=== PATIENT | male | born 1950 | race Caucasian/White ===

== ENCOUNTER 2016-10-07 17:35 | Emergency (ER) | payer OTHER, MEDICARE ==
[2016-10-07] MEDS ORDERED: ASPIRIN 81 MG TABLET, CHEWABLE PO ONE (18:16)
--- NOTE | 2016-10-07 18:18 | ER Document Report ---
ED Medical Screen (RME) - General Stated Complaint: CHEST PAIN Mode of Arrival: Wheelchair Information source: Patient Notes: Patient presents to the emergency department with complaints of chest pain for the past 3 days. Patient has long history of cardiac disease . Also reports his neck and shoulders and arms hurt really bad. He reports he vomited a couple times. Patient reports he has nitro but did not take it. Last cardiac surgery was in 1994. EKG sinus rhythm bundle-branch block no change from 2014. pt reports active chest pain radiating to his back now. I have greeted and performed a rapid initial assessment of this patient. A comprehensive ED assessment and evaluation of the patient, analysis of test results and completion of the medical decision making process will be conducted by additional ED providers. TRAVEL OUTSIDE OF THE [place] IN LAST 30 DAYS: No - Related Data Allergies/Adverse Reactions: No Known Allergies Allergy (Verified 10/07/16 18:14) Past Medical History - Past Medical History Cardiac Medical History: Reports: Hx Congestive Heart Failure, Hx Coronary Artery Disease, Hx Heart Attack - x 7, Hx Hypercholesterolemia, Hx Hypertension Pulmonary Medical History: Reports: Hx Asthma, Hx COPD Endocrine Medical History: Reports: Hx Diabetes Mellitus Type 2 GI Medical History: Reports: Hx Hiatal Hernia, Hx Ulcer Psychiatric Medical History: Reports: Hx Depression Past Surgical History: Reports: Hx Appendectomy, Hx Cardiac Catheterization - 3- 4 stents, Hx Cardiac Surgery - trip bypass - Immunizations Hx Diphtheria, Pertussis, Tetanus Vaccination: Yes Physical Exam - Vital signs Vitals: Temp Pulse Resp BP Pulse Ox 97.5 F 64 18 159/83 H 97 10/07/16 17:53 10/07/16 17:53 10/07/16 17:53 10/07/16 17:53 10/07/16 17:53 Course - Vital Signs Vital signs: Temp Pulse Resp BP Pulse Ox 97.5 F 64 18 159/83 H 97 10/07/16 17:53 10/07/16 17:53 10/07/16 17:53 10/07/16 17:53 10/07/16 17:53
[2016-10-07 18:54] LABS: ABSOLUTE BASOPHILS # (AUTO) 0.1 10^3/uL (0.0-0.2); ABSOLUTE EOSINOPHILS # (AUTO) 0.4 10^3/uL (0.0-0.6); ABSOLUTE LYMPHOCYTES (AUTO) 2.5 10^3/uL (0.5-4.7); ABSOLUTE MONOCYTES (AUTO) 0.7 10^3/uL (0.1-1.4); ABSOLUTE NEUT (AUTO) 5.2 10^3/uL (1.7-8.2); BASOPHILS % (AUTO) 1.2 % (0-2); EOSINOPHILS % (AUTO) 4.5 % (0-6); HEMATOCRIT 47.6 % (37.9-51.0); HEMOGLOBIN 15.4 g/dL (13.5-17.0); HGB HCT DIFFERENCE -1.4; MEAN CORPUSCULAR HEMOGLOBIN 27.6 pg (27.0-33.4); MEAN CORPUSCULAR HGB CONC 32.5 g/dL (32.0-36.0); MEAN CORPUSCULAR VOLUME 85 fl (80-97); MONOCYTES % (AUTO) 7.4 % (3-13); RED CELL DISTRIBUTION WIDTH 14.3 % (11.5-14.0); SEGMENTED NEUTROPHILS % (AUTO) 58.9 % (42-78); WHITE BLOOD COUNT 8.9 10^3/uL (4.0-10.5)
[2016-10-07] MEDS ORDERED: ONDANSETRON HCL INJ/PF 4 MG/2 ML SDV IV ONE (19:10)
[2016-10-07] MEDS ORDERED: NORMAL SALINE 1000 ML 1,000 ML IV PRN (19:10)
[2016-10-07 19:14] LABS: ALANINE AMINOTRANSFERASE 40 U/L (21-72); ALBUMIN 4.4 g/dL (3.5-5.0); ALKALINE PHOSPHATASE 87 U/L (38-126); ANION GAP 13 (5-19); ASPARTATE AMINO TRANSFERASE 25 U/L (17-59); BILIRUBIN,TOTAL 0.8 mg/dL (0.2-1.3); BLOOD UREA NITROGEN 13 mg/dL (7-20); CALCIUM 9.8 mg/dL (8.4-10.2); CARBON DIOXIDE 25 mmol/L (22-30); CHLORIDE 101 mmol/L (98-107); CREATINE KINASE 89 U/L (55-170); CREATININE RESULT 0.94 mg/dL (0.52-1.25); GLUCOSE 174 mg/dL (75-110); LIPASE 51.8 U/L (23-300); POTASSIUM 4.4 mmol/L (3.6-5.0); SODIUM 139.4 mmol/L (137-145); TOTAL PROTEIN 7.6 g/dL (6.3-8.2)
[2016-10-07 19:15] LABS: APPEARANCE,URINE CLEAR; BILIRUBIN,URINE NEGATIVE (NEGATIVE); GLUCOSE, URINE 50 mg/dL (NEGATIVE); KETONES,URINE 20 mg/dL (NEGATIVE); LEUKOCYTE ESTERASE,URINE NEGATIVE (NEGATIVE); NITRITE,URINE NEGATIVE (NEGATIVE); PROTEIN,URINE 100 mg/dL (NEGATIVE); URINE SPECIFIC GRAVITY 1.016; UROBILINOGEN,URINE NEGATIVE mg/dL (<2.0)
--- NOTE | 2016-10-07 19:19 | ER Document Report ---
ED General - General Chief Complaint: Chest Pain Stated Complaint: CHEST PAIN Time seen by provider: 19:16 Mode of Arrival: Wheelchair TRAVEL OUTSIDE OF THE [place] IN LAST 30 DAYS: No - HPI Patient complains to provider of: flulike symptoms Onset: Other - 3 days Onset/Duration: Persistent Quality of pain: Achy Severity: Mild Pain Level: 2 Associated symptoms: Body/muscle aches, Chest pain, Chills, Productive cough, Diarrhea, Headache, Nausea, Vomiting, Sinus pain/drainage, Shortness of breath, Sore throat, Weakness Exacerbated by: Denies Relieved by: Denies Similar symptoms previously: No Recently seen / treated by doctor: No Notes: 66-year-old male with multiple significant past medical problems presents to the emergency room for flulike symptoms 3 days, he reports sore throat, lightheadedness, no appetite, headache, joint pain, neck pain, chest pain, arm pain, subjective fever, cough productive of a small amount of clear phlegm, 2 episodes of vomiting yesterday, diarrhea, no blood in vomit or stool, dysuria, he also complains that he has been somewhat incontinent of urine and stools for the past 6 months stating that if he does not have a rash to the bathroom quickly he often doesn't make it - Related Data Allergies/Adverse Reactions: No Known Allergies Allergy (Verified 10/07/16 18:14) Past Medical History - General Information source: Patient - Social History Smoking Status: Former Smoker Chew tobacco use (# tins/day): No Frequency of alcohol use: None Drug Abuse: None Family History: Reviewed & Not Pertinent Patient has suicidal ideation: No Patient has homicidal ideation: No - Past Medical History Cardiac Medical History: Reports: Hx Congestive Heart Failure, Hx Coronary Artery Disease, Hx Heart Attack - x 7, Hx Hypercholesterolemia, Hx Hypertension Pulmonary Medical History: Reports: Hx Asthma, Hx COPD Endocrine Medical History: Reports: Hx Diabetes Mellitus Type 2 Renal/ Medical History: Denies: Hx Peritoneal Dialysis GI Medical History: Reports: Hx Hiatal Hernia, Hx Ulcer Psychiatric Medical History: Reports: Hx Depression Past Surgical History: Reports: Hx Appendectomy, Hx Cardiac Catheterization - 3- 4 stents, Hx Cardiac Surgery - trip bypass - Immunizations Hx Diphtheria, Pertussis, Tetanus Vaccination: Yes Hx Pneumococcal Vaccination: 08/12/12 Review of Systems - Review of Systems Constitutional: See HPI EENT: See HPI Cardiovascular: See HPI Respiratory: See HPI Gastrointestinal: See HPI Genitourinary: See HPI Male Genitourinary: No symptoms reported Musculoskeletal: See HPI Skin: No symptoms reported Hematologic/Lymphatic: No symptoms reported Neurological/Psychological: See HPI -: Yes All other systems reviewed and negative Physical Exam - Vital signs Vitals: Temp Pulse Resp BP Pulse Ox 97.5 F 64 18 159/83 H 97 10/07/16 17:53 10/07/16 17:53 10/07/16 17:53 10/07/16 17:53 10/07/16 17:53 Interpretation: Normal - General General appearance: Appears well, Alert - HEENT Head: Normocephalic, Atraumatic Eyes: Normal Conjunctiva: Normal Extraocular movements intact: Yes Eyelashes: Normal Pupils: PERRL Ears: Normal External canal: Normal Tympanic membrane: Normal Sinus: Normal Nasal: Normal Mouth/Lips: Normal Mucous membranes: Normal Pharynx: Normal Neck: Normal - Respiratory Respiratory status: No respiratory distress Chest status: Nontender Breath sounds: Normal Chest palpation: Normal - Cardiovascular Rhythm: Regular Heart sounds: Normal auscultation Murmur: No - Abdominal Inspection: Normal Distension: No distension Bowel sounds: Normal Tenderness: Tender - Epigastric Organomegaly: No organomegaly - Back Back: Normal, Nontender - Extremities General upper extremity: Normal inspection, Nontender, Normal color, Normal ROM , Normal temperature General lower extremity: Normal inspection, Nontender, Normal color, Normal ROM , Normal temperature, Normal weight bearing. No: Maribell's sign - Neurological Neuro grossly intact: Yes Cognition: Normal Orientation: AAOx4 Mayra Coma Scale Eye Opening: Spontaneous Mayra Coma Scale Verbal: Oriented [place] Coma Scale Motor: Obeys Commands [place] Coma Scale Total: 15 Speech: Normal Motor strength normal: LUE, RUE, LLE, RLE Sensory: Normal - Psychological Associated symptoms: Normal affect, Normal mood - Skin Skin Temperature: Warm Skin Moisture: Dry Skin Color: Normal Course - Re-evaluation Re-evalutation: 10/07/16 21:27 Patient resting comfortably, reports feeling much better after Zofran and IV fluids, symptoms consistent with likely viral illness, he will be discharged with a Zofran dose pack and information for follow-up, advised to return if symptoms worsen, patient and spouse at bedside acknowledge understanding and agreement with this plan - Vital Signs Vital signs: Temp Pulse Resp BP Pulse Ox 97.5 F 64 14 153/65 H 96 10/07/16 17:53 10/07/16 17:53 10/07/16 20:01 10/07/16 20:01 10/07/16 20:01 - Laboratory Result Diagrams: 10/07/16 18:40 10/07/16 18:40 Laboratory results interpreted by me: 10/07/16 10/07/16 10/07/16 18:40 18:40 18:57 RBC 5.60 H RDW 14.3 H Plt Count 147 L Glucose 174 H Urine Protein 100 H Urine Glucose (UA) 50 H Urine Ketones 20 H - Diagnostic Test Radiology reviewed: Image reviewed, Reports reviewed - EKG Interpretation by Me EKG shows normal: Sinus rhythm Rate: Normal Rhythm: NSR [place]/QRS: RBBB - Incomplete When compared to previous EKG there are: No significant change Discharge - Discharge Clinical Impression: Viral illness Condition: Stable Disposition: HOME, SELF-CARE Instructions: Chest Wall Pain ([facility]), Viral Syndrome ([facility]) Additional Instructions: Follow up with your primary care provider in one to 2 days. Return to the emergency room immediately if symptoms worsen or any additional concerns.
--- NOTE | 2016-10-07 19:24 | EKG REPORT ---
SEVERITY:- ABNORMAL ECG - SINUS RHYTHM INCOMPLETE RIGHT BUNDLE BRANCH BLOCK : Confirmed by: Ashley Sifuentes MD 07-Oct-2016 19:23:11
[2016-10-07 19:26] LABS: CREATINE KINASE MB 0.52 ng/mL (<4.55)
[2016-10-07 19:27] LABS: TROPONIN I < 0.012 ng/mL
[2016-10-07] MEDS ORDERED: ONDANSETRON ODT 4 MG TAB (6 TAB/DSPK) PO PRN (21:29)
[2016-10-07 21:53] VITALS: BP 163/85
== END 2016-10-07 21:53 | disposition home or self-care (01) ==
LOC: ER 17:35
DX: B34.9 Viral infection, unspecified (principal); R07.9 Chest pain, unspecified; M79.1 Myalgia; R05 Cough; R68.83 Chills (without fever); R19.7 Diarrhea, unspecified; R51 Headache; R11.2 Nausea with vomiting, unspecified; J34.89 Other specified disorders of nose and nasal sinuses; R06.02 Shortness of breath; R53.1 Weakness; J02.9 Acute pharyngitis, unspecified; R42 Dizziness and giddiness; R63.0 Anorexia; R10.816 Epigastric abdominal tenderness; M25.50 Pain in unspecified joint; M54.2 Cervicalgia; R32 Unspecified urinary incontinence; I45.10 Unspecified right bundle-branch block; I25.10 Atherosclerotic heart disease of native coronary artery without angina pectoris; I25.2 Old myocardial infarction; I10 Essential (primary) hypertension; J44.9 Chronic obstructive pulmonary disease, unspecified; J45.909 Unspecified asthma, uncomplicated; E11.9 Type 2 diabetes mellitus without complications; Z90.49 Acquired absence of other specified parts of digestive tract; Z98.61 Coronary angioplasty status; Z95.1 Presence of aortocoronary bypass graft; Z87.891 Personal history of nicotine dependence
CPT/HCPCS: 93005; 99285; 96361; 96374; 36415; 82553; 82550; 83690; 85025; 80053; 81001; 84484; 87804; 71020; 93010; J2405; J7030

== ENCOUNTER 2016-10-16 11:54 | Emergency (ER) | payer OTHER, MEDICARE ==
--- NOTE | 2016-10-16 12:16 | ER Document Report ---
ED Medical Screen (RME) - General Stated Complaint: CHEST PAIN Time seen by provider: 12:12 Mode of Arrival: Wheelchair Information source: Patient TRAVEL OUTSIDE OF THE [place] IN LAST 30 DAYS: No - HPI Patient complains to provider of: CHEST PAIN Onset: This morning Onset/Duration: Sudden Context: PRESSURE RELIEVED BY 2 NITRO Quality of pain: Pressure Severity: Moderate Pain Level: 4 Associated Symptoms: Chest pain, Hurts to breath, Nausea, Shortness of breath. denies: Vomiting Exacerbated by: Denies Relieved by: Denies Similar symptoms previously: Yes - HX 7 IN AND TRIPLE BYPASS Recently seen / treated by doctor: No Notes: 10/16/16 12:15 TAKES ASPIRIN DAILY, NOT SURE OF DOSE, SO NO ASPIRIN GIVEN IN RME UNTIL CAN VERIFY DOSE - Related Data Smoking: Non-smoker Frequency of alcohol use: None Drug Abuse: None Pertinent History: IN/BYPASS DM 1 HTN Allergies/Adverse Reactions: No Known Allergies Allergy (Verified 10/16/16 12:15) Past Medical History - Past Medical History Cardiac Medical History: Reports: Hx Congestive Heart Failure, Hx Coronary Artery Disease, Hx Heart Attack - x 7, Hx Hypercholesterolemia, Hx Hypertension Pulmonary Medical History: Reports: Hx Asthma, Hx COPD Endocrine Medical History: Reports: Hx Diabetes Mellitus Type 2 Renal/ Medical History: Denies: Hx Peritoneal Dialysis GI Medical History: Reports: Hx Hiatal Hernia, Hx Ulcer Psychiatric Medical History: Reports: Hx Depression Past Surgical History: Reports: Hx Appendectomy, Hx Cardiac Catheterization - 3- 4 stents, Hx Cardiac Surgery - trip bypass - Immunizations Hx Diphtheria, Pertussis, Tetanus Vaccination: Yes
[2016-10-16 13:07] LABS: ABSOLUTE BASOPHILS # (AUTO) 0.1 10^3/uL (0.0-0.2); ABSOLUTE EOSINOPHILS # (AUTO) 0.4 10^3/uL (0.0-0.6); ABSOLUTE LYMPHOCYTES (AUTO) 2.1 10^3/uL (0.5-4.7); ABSOLUTE MONOCYTES (AUTO) 0.6 10^3/uL (0.1-1.4); ABSOLUTE NEUT (AUTO) 3.3 10^3/uL (1.7-8.2); BASOPHILS % (AUTO) 1.3 % (0-2); EOSINOPHILS % (AUTO) 5.7 % (0-6); HEMATOCRIT 41.5 % (37.9-51.0); HEMOGLOBIN 13.9 g/dL (13.5-17.0); HGB HCT DIFFERENCE 0.2; LYMPHOCYTES % (AUTO) 32.7 % (13-45); MEAN CORPUSCULAR HEMOGLOBIN 27.9 pg (27.0-33.4); MEAN CORPUSCULAR HGB CONC 33.6 g/dL (32.0-36.0); MEAN CORPUSCULAR VOLUME 83 fl (80-97); MONOCYTES % (AUTO) 9.6 % (3-13); RED CELL DISTRIBUTION WIDTH 14.3 % (11.5-14.0); SEGMENTED NEUTROPHILS % (AUTO) 50.7 % (42-78); WHITE BLOOD COUNT 6.5 10^3/uL (4.0-10.5)
[2016-10-16 13:14] LABS: PROTHROMBIN TIME 12.6 SEC (11.4-15.4)
--- NOTE | 2016-10-16 13:47 | ER Document Report ---
ED General - General Chief Complaint: Chest Pain Stated Complaint: CHEST PAIN Mode of Arrival: Wheelchair Information source: Patient Notes: 66-year-old male extensive cardiac history including triple bypass 3 stents 7 MIs presents with complaints of chest pain. Patient notes it is a pressure sensation in the middle of his chest pain down his left arm up his left neck. Patient took 2 nitroglycerin at home which resulted chest pain. Patient denies any fevers or chills admits shortness of breath. He was seen here one week prior at which time patient was discharged. Denies any other concerns at this time TRAVEL OUTSIDE OF THE [place] IN LAST 30 DAYS: No - HPI Onset: This morning Onset/Duration: Intermittent Quality of pain: Pressure Severity: Mild Pain Level: 2 Associated symptoms: Chest pain Exacerbated by: Denies Relieved by: Other - Nitroglycerin Similar symptoms previously: Yes Recently seen / treated by doctor: Yes - Related Data Allergies/Adverse Reactions: No Known Allergies Allergy (Verified 10/16/16 12:15) Past Medical History - General Information source: Patient - Social History Smoking Status: Unknown if Ever Smoked Cigarette use (# per day): No Chew tobacco use (# tins/day): No Smoking Education Provided: No Frequency of alcohol use: None Drug Abuse: None Family History: Reviewed & Not Pertinent Patient has suicidal ideation: No Patient has homicidal ideation: No - Past Medical History Cardiac Medical History: Reports: Hx Congestive Heart Failure, Hx Coronary Artery Disease, Hx Heart Attack - x 7, Hx Hypercholesterolemia, Hx Hypertension Pulmonary Medical History: Reports: Hx Asthma, Hx COPD Endocrine Medical History: Reports: Hx Diabetes Mellitus Type 2 Renal/ Medical History: Denies: Hx Peritoneal Dialysis GI Medical History: Reports: Hx Hiatal Hernia, Hx Ulcer Psychiatric Medical History: Reports: Hx Depression Past Surgical History: Reports: Hx Appendectomy, Hx Cardiac Catheterization - 3- 4 stents, Hx Cardiac Surgery - trip bypass - Immunizations Hx Diphtheria, Pertussis, Tetanus Vaccination: Yes Hx Pneumococcal Vaccination: 08/12/12 Review of Systems - Review of Systems Notes: REVIEW OF SYSTEMS: CONSTITUTIONAL : Denies fever, chills, or sweats. Denies recent illness. EENT: Denies eye, ear, throat, or mouth pain or symptoms. Denies nasal or sinus congestion or discharge. Denies throat, tongue, or mouth swelling or difficulty swallowing. CARDIOVASCULAR: Admits to chest pain RESPIRATORY: Denies cough, cold, or chest congestion. Denies shortness of breath, difficulty breathing, or wheezing. GASTROINTESTINAL: Denies abdominal pain or distention. Denies nausea, vomiting , or diarrhea. Denies blood in vomitus, stools, or per rectum. Denies black, tarry stools. Denies constipation. GENITOURINARY: Denies difficulty urinating, painful urination, burning, frequency, blood in urine, or discharge. MUSCULOSKELETAL: Denies back or neck pain or stiffness. Denies joint pain or swelling. SKIN: Denies rash, lesions or sores. HEMATOLOGIC : Denies easy bruising or bleeding. LYMPHATIC: Denies swollen, enlarged glands. NEUROLOGICAL: Denies confusion or altered mental status. Denies passing out or loss of consciousness. Denies dizziness or lightheadedness. Denies headache. Denies weakness or paralysis or loss of use of either side. Denies problems with gait or speech. Denies sensory loss, numbness, or tingling. Denies seizures. PSYCHIATRIC: Denies anxiety or stress. Denies depression, suicidal ideation, or homicidal ideation. ALL OTHER SYSTEMS REVIEWED AND NEGATIVE. Dictation was performed using Sina voice recognition software PHYSICAL EXAMINATION: GENERAL: Well-appearing, well-nourished and in no acute distress. HEAD: Atraumatic, normocephalic. EYES: Pupils equal round and reactive to light, extraocular movements intact, sclera anicteric, conjunctiva are normal. ENT: Nares patent, oropharynx clear without exudates. Moist mucous membranes. NECK: Normal range of motion, supple without lymphadenopathy LUNGS: Breath sounds clear to auscultation bilaterally and equal. No wheezes rales or rhonchi. HEART: Regular rate and rhythm without murmurs ABDOMEN: Soft, nontender, nondistended abdomen. No guarding, no rebound. No masses appreciated. Musculoskeletal: Normal range of motion, no pitting or edema. No cyanosis. NEUROLOGICAL: Cranial nerves grossly intact. Normal speech, normal gait. Normal sensory, motor exams PSYCH: Normal mood, normal affect. SKIN: Warm, Dry, normal turgor, no rashes or lesions noted. Physical Exam - Vital signs Vitals: Temp Pulse Resp BP Pulse Ox 97.5 F 62 20 140/68 H 94 10/16/16 12:11 10/16/16 12:11 10/16/16 12:11 10/16/16 12:11 10/16/16 12:11 Course - Re-evaluation Re-evalutation: 10/16/16 13:46 [facility] paged 10/16/16 14:29 Dr Haro accepts at [facility] 10/16/16 14:36 10/16/16 14:49 Patient's troponin is elevated at 0.101, this is much higher than his previous level when he was here last week. Patient is stable at this time 10/16/16 15:17 Patient pain-free at this time still awaiting transfer. M[facility] contacted regarding of elevated enzyme awaiting callback regarding use of Lovenox or heparin given that it is not elevated enough to be considered a NSTEMI - Vital Signs Vital signs: Temp Pulse Resp BP Pulse Ox 97.5 F 62 20 140/68 H 94 10/16/16 12:11 10/16/16 12:11 10/16/16 12:11 10/16/16 12:11 10/16/16 12:11 - Laboratory Result Diagrams: 10/16/16 12:57 10/16/16 13:35 Laboratory results interpreted by me: 10/16/16 10/16/16 12:57 13:35 RDW 14.3 H Plt Count 149 L Glucose 239 H - Diagnostic Test Radiology reviewed: Image reviewed, Reports reviewed - EKG Interpretation by [place] EKG shows normal: Sinus rhythm, [place], Intervals, QRS Complexes Discharge - Discharge Clinical Impression: Unstable angina pectoris Chest pain Qualifiers: Chest pain type: unspecified Qualified Code(s): R07.9 - Chest pain, unspecified Condition: Stable Disposition: [facility]
[2016-10-16] MEDS ORDERED: ASPIRIN 81 MG TABLET, CHEWABLE PO ONE (13:50)
[2016-10-16 14:06] LABS: BLOOD UREA NITROGEN 15 mg/dL (7-20); CALCIUM 9.3 mg/dL (8.4-10.2); CARBON DIOXIDE 26 mmol/L (22-30); CHLORIDE 105 mmol/L (98-107); CREATININE RESULT 0.91 mg/dL (0.52-1.25); GLUCOSE 239 mg/dL (75-110); POTASSIUM 4.5 mmol/L (3.6-5.0)
[2016-10-16 14:07] LABS: ALANINE AMINOTRANSFERASE 41 U/L (21-72); ALBUMIN 4.1 g/dL (3.5-5.0); ALKALINE PHOSPHATASE 99 U/L (38-126); ANION GAP 9 (5-19); ASPARTATE AMINO TRANSFERASE 19 U/L (17-59); BILIRUBIN,TOTAL 0.5 mg/dL (0.2-1.3); CREATINE KINASE 73 U/L (55-170); SODIUM 140.2 mmol/L (137-145); TOTAL PROTEIN 6.6 g/dL (6.3-8.2)
[2016-10-16 14:25] LABS: CREATINE KINASE MB 0.94 ng/mL (<4.55)
[2016-10-16] MEDS ORDERED: NITROGLYCERIN 2% OINTMENT 1 GM PACKET TP ONE (14:28)
[2016-10-16 14:39] LABS: TROPONIN I 0.101 ng/mL
[2016-10-16 16:20] VITALS: BP 132/65
--- NOTE | 2016-10-16 17:44 | ER Document Report ---
Doctor's Note Notes: 10/16/16 17:43 Pre-transfer reevaluation: Patient is alert, oriented, and coherent. Denies any discomfort. Vital signs are satisfactory. Patient is appropriate for transport as planned.
--- NOTE | 2016-10-16 22:14 | EKG REPORT ---
SEVERITY:- ABNORMAL ECG - SINUS RHYTHM INCOMPLETE RIGHT BUNDLE BRANCH BLOCK : Confirmed by: Cash Dubon 16-Oct-2016 22:13:28
== END 2016-10-16 17:45 | disposition short-term general hospital (02) ==
LOC: ER 11:54
DX: I20.0 Unstable angina (principal); I10 Essential (primary) hypertension; R74.8 Abnormal levels of other serum enzymes; R06.02 Shortness of breath; I25.10 Atherosclerotic heart disease of native coronary artery without angina pectoris; I25.2 Old myocardial infarction; J44.9 Chronic obstructive pulmonary disease, unspecified; J45.909 Unspecified asthma, uncomplicated; Z95.1 Presence of aortocoronary bypass graft; Z98.61 Coronary angioplasty status; E11.9 Type 2 diabetes mellitus without complications
CPT/HCPCS: 36415; 71010; 80053; 82550; 82553; 84484; 85025; 85610; 93005; 93010; 99285

== ENCOUNTER 2016-10-21 13:53 | Emergency (ER) | payer OTHER, MEDICARE ==
--- NOTE | 2016-10-21 15:42 | ER Document Report ---
ED General - General Chief Complaint: General Weakness Stated Complaint: WEAKNESS Time seen by provider: 15:30 Mode of Arrival: Medic Information source: Patient Notes: 66-year-old male who reports abrupt onset of left upper extremity weakness along with left-sided chest pain shortness breath and diaphoresis beginning thinks around noon. He reports symptoms lasted about 30 minutes. Patient reports he just recently had one cardiac stent placed by Dr. Marci burnett in [place] and was discharged 2 days ago. He says he was instructed to go to the emergency department for any problems in his left upper extremity. He reports he has 3 cardiac stents that are occluded that he may mean bypass surgery grafts. The patient denies fever, chills, nausea, vomiting, diarrhea, hematemesis, or melena. He reports chronic abdominal pain related to an abdominal hernia but says is not worse than normal. He reports chronically having weakness to all extremities and memory problems related to prior CVA or brain trauma but says he does not chronically have any unilateral weakness. Physical Exam: General: Alert, appears well. HEENT: Normocephalic. Atraumatic. PERRLA. Extraocular movements intact. Oropharynx clear. Neck: Supple. Non-tender. No JVD no carotid bruits Respiratory: No respiratory distress. Scattered rhonchi bilaterally breath sounds equal no accessory muscle use Cardiovascular: Regular rate and rhythm. PMI not displaced Abdominal: Normal Inspection. Soft, non-tender. No distension. Normal Bowel Sounds. Back: Non-tender. No deformity or step off. Extremities: Moves all four extremities. Upper extremities: Normal inspection. Non-tender. Normal color. Normal ROM. Normal temperature. Lower extremities: Normal inspection. Non-tender. No edema. Normal color. Normal ROM. Normal temperature. Neurological: Cranial nerves III through XII are intact. 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 Motor function is 4-5 and equal both lower extremities. Patient has difficulty cooperating with cerebellar function testing to the left upper extremity due to weakness Speech clear mentation normal Psychological: Normal affect. Normal Mood. Skin: Warm. Dry. Normal color. TRAVEL OUTSIDE OF THE [place] IN LAST 30 DAYS: No - Related Data Allergies/Adverse Reactions: No Known Allergies Allergy (Verified 10/16/16 12:15) Past Medical History - Social History Smoking Status: Current Every Day Smoker Family History: Reviewed & Not Pertinent - Past Medical History Cardiac Medical History: Reports: Hx Congestive Heart Failure, Hx Coronary Artery Disease, Hx Heart Attack - x 7, Hx Hypercholesterolemia, Hx Hypertension Pulmonary Medical History: Reports: Hx Asthma, Hx COPD Endocrine Medical History: Reports: Hx Diabetes Mellitus Type 2 Renal/ Medical History: Denies: Hx Peritoneal Dialysis GI Medical History: Reports: Hx Hiatal Hernia, Hx Ulcer Psychiatric Medical History: Reports: Hx Depression Past Surgical History: Reports: Hx Appendectomy, Hx Cardiac Catheterization - 3- 4 stents, Hx Cardiac Surgery - trip bypass - Immunizations Hx Diphtheria, Pertussis, Tetanus Vaccination: Yes Hx Pneumococcal Vaccination: 08/12/12 Review of Systems - Review of Systems Constitutional: denies: Chills, Fever EENT: denies: Ear pain, Throat pain Cardiovascular: See HPI Respiratory: See HPI Gastrointestinal: See HPI Genitourinary: denies: Burning, Dysuria Musculoskeletal: denies: Back pain Hematologic/Lymphatic: denies: Swollen glands Neurological/Psychological: See HPI Physical Exam - Vital signs Vitals: Temp Pulse Resp BP Pulse Ox 97.5 F 58 L 20 160/63 H 97 10/21/16 14:17 10/21/16 14:17 10/21/16 14:17 10/21/16 14:17 10/21/16 14:17 Course - Re-evaluation Re-evalutation: 10/21/16 18:16 The patient has not had any chest discomfort during his stay murmur. Reevaluation shows him to still have 4-5 video effects editor strength the left upper sternal. 5 out of 5 on the right patient's unable on repeated questioning to say whether this is his baseline or not. Quite clear however that he had had chest pain and shortness of breath with diaphoresis and thinks that those symptoms may been interfering with his use of the left upper extremity. His troponin is weakly positive and in the setting of chest pain at home and recent cardiac stent think the prudent course would be to have him reevaluated in the inpatient setting by his cardiology service. I discussed case with Dr. Trinidad at [facility] and he is accepted the patient in transfer. The patient initially presented as a code stroke but his constellation of symptoms I think warrant repeat cardiac workup and I do not assess him as being a candidate for TPA for stroke in any case. 10/21/16 18:19 Patient is already on full dose aspirin and we will not administer further aggressive anticoagulation at this point - Vital Signs Vital signs: Temp Pulse Resp BP Pulse Ox 97.7 F 59 L 18 156/80 H 95 10/21/16 17:01 10/21/16 17:01 10/21/16 17:01 10/21/16 17:01 10/21/16 17:01 - Laboratory Result Diagrams: 10/21/16 14:30 10/21/16 14:30 Laboratory results interpreted by me: 10/21/16 10/21/16 14:30 14:30 Hgb 13.3 L Plt Count 149 L Glucose 240 H Total Protein 6.2 L Albumin 3.4 L - Diagnostic Test Radiology reviewed: Image reviewed, Reports reviewed - EKG Interpretation by Me Additional EKG results interpreted by me: 10/21/16 18:15 EKG reviewed by myself shows sinus rhythm at 58 with incomplete right bundle branch block Discharge - Discharge Clinical Impression: Chest pain Qualifiers: Chest pain type: unspecified Qualified Code(s): R07.9 - Chest pain, unspecified Condition: Good Disposition: [facility]
[2016-10-21 16:01] LABS: ABSOLUTE BASOPHILS # (AUTO) 0.1 10^3/uL (0.0-0.2); ABSOLUTE EOSINOPHILS # (AUTO) 0.3 10^3/uL (0.0-0.6); ABSOLUTE LYMPHOCYTES (AUTO) 2.6 10^3/uL (0.5-4.7); ABSOLUTE MONOCYTES (AUTO) 0.7 10^3/uL (0.1-1.4); ABSOLUTE NEUT (AUTO) 3.5 10^3/uL (1.7-8.2); EOSINOPHILS % (AUTO) 4.7 % (0-6); HEMATOCRIT 39.9 % (37.9-51.0); HEMOGLOBIN 13.3 g/dL (13.5-17.0); MEAN CORPUSCULAR HEMOGLOBIN 27.6 pg (27.0-33.4); MEAN CORPUSCULAR HGB CONC 33.3 g/dL (32.0-36.0); MEAN CORPUSCULAR VOLUME 83 fl (80-97); MONOCYTES % (AUTO) 9.4 % (3-13); RED BLOOD COUNT 4.82 10^6/uL (4.35-5.55); RED CELL DISTRIBUTION WIDTH 13.8 % (11.5-14.0); SEGMENTED NEUTROPHILS % (AUTO) 48.9 % (42-78); WHITE BLOOD COUNT 7.1 10^3/uL (4.0-10.5)
[2016-10-21 16:18] LABS: ALANINE AMINOTRANSFERASE 46 U/L (21-72); ALBUMIN 3.4 g/dL (3.5-5.0); ALKALINE PHOSPHATASE 116 U/L (38-126); ANION GAP 9 (5-19); ASPARTATE AMINO TRANSFERASE 26 U/L (17-59); BILIRUBIN,TOTAL 0.4 mg/dL (0.2-1.3); BLOOD UREA NITROGEN 19 mg/dL (7-20); CALCIUM 9.3 mg/dL (8.4-10.2); CARBON DIOXIDE 25 mmol/L (22-30); CHLORIDE 103 mmol/L (98-107); CREATINE KINASE 83 U/L (55-170); CREATININE RESULT 0.95 mg/dL (0.52-1.25); GLUCOSE 240 mg/dL (75-110); POTASSIUM 4.5 mmol/L (3.6-5.0); SODIUM 137.3 mmol/L (137-145); TOTAL PROTEIN 6.2 g/dL (6.3-8.2)
[2016-10-21 16:30] LABS: CREATINE KINASE MB 0.9 ng/mL (<4.55)
[2016-10-21 16:48] LABS: TROPONIN I 0.12 ng/mL
--- NOTE | 2016-10-21 17:23 | EKG REPORT ---
SEVERITY:- ABNORMAL ECG - SINUS RHYTHM IVCD, CONSIDER ATYPICAL RBBB PROBABLE OLD INFERIOR KS : Confirmed by: Matteo Nicholas MD 21-Oct-2016 17:23:32
[2016-10-21] MEDS ORDERED: ASPIRIN 325 MG TABLET, ENT COATED PO ONE (18:20)
[2016-10-21 20:18] VITALS: BP 152/74
== END 2016-10-21 20:35 | disposition short-term general hospital (02) ==
LOC: ER 13:53
DX: R07.9 Chest pain, unspecified (principal); R53.1 Weakness; F17.210 Nicotine dependence, cigarettes, uncomplicated
CPT/HCPCS: 36415; 70450; 71010; 80053; 82550; 82553; 83880; 84484; 85025; 93005; 93010; 99285

== ENCOUNTER 2017-03-31 07:44 | Day surgery (SDC) | payer MEDICARE, OTHER ==
[~2017-03-31 07:44] MED LIST: KETOROLAC TROMETHAMINE 0.45% 4 DROP/0.4 ML DROPERETTE OS PRN
[2017-03-31] MEDS ORDERED: MIDAZOLAM 2 MG/2 ML INJ ONE (08:02)
[2017-03-31] MEDS: TROPICAMIDE 1% OPH SOLN 3 ML OS PRN ×3 (08:44→09:00)
[2017-03-31] MEDS: TETRACAINE HCL 0.5% OPH SOLN 2 ML OS PRN ×3 (08:44→09:15)
[2017-03-31] MEDS: CYCLOPENTOLATE 0.2%/PHENYLEPHRINE 1% OPH SOLN 2 ML OS PRN ×3 (08:44→09:00)
[2017-03-31] MEDS: BESIFLOXACIN HCL 0.6% OPH SUSP 5 ML BOTTLE OS PRN ×3 (08:44→09:35)
[2017-03-31] MEDS ORDERED: CHONDR SU A NA/HYALUR INTRAOC KIT (SURGICARE) ONE (08:50)
[2017-03-31] MEDS ORDERED: EPINEPHRINE INJ/PF 1 MG/1 ML AMPULE ONE (08:50)
[2017-03-31] MEDS ORDERED: LIDOCAINE 1% INJ-PF (10 MG/ML) 30 ML SDV ONE (08:50)
--- NOTE | 2017-03-31 22:09 | [facility] OPERATIVE REPORT E ---
[facility] Operative Report NAME: YOUGN POPE AGE: 66Y DATE OF SURGERY: 03/31/2017 ROOM: PREOPERATIVE DIAGNOSIS: Cataract, left eye. POSTOPERATIVE DIAGNOSIS: Cataract, left eye. OPERATION: Cataract extraction with intraocular lens implant of the left eye. SURGEON: JEAN DURAND M.D. ANESTHESIA: Topical. PROCEDURE: After obtaining appropriate consent, the patient's left eye was prepped and draped in sterile fashion as well as the surgeon in a sterile manner and cataract surgery was started. First a paracentesis blade was used to make a small side-port incision. Viscoelastic was used to inflate the anterior chamber. Next a 2.4 mm incision was made with the paracentesis blade. A continuous capsulorrhexis incision was made using a cystotome and Utrata forceps. Following this hydrodissection was carried out to make the lens fully loose and mobile and it was rotated 90 degrees. Following this, a [id number] technique was used to phacoemulsify the lens with a CDE of 5.44. The remaining cortex was removed with irrigation/aspiration. Provisc was instilled into the capsular bag to inflate the bag. A SN60WF, 20.0 diopter lens was placed. The remaining viscoelastic material was removed with irrigation/aspiration. Following this, a 10-0 nylon suture was used to close the incision and it was found to be watertight. Vigamox was instilled in the eye and a protective shield was placed over the eye. The patient returned to the postoperative recovery in stable condition. DICTATING PHYSICIAN: JEAN DURAND M.D. [id number] PHY#: [id number] ID: [id number] JOB#: [id number] ACCT: [id number] cc:JEAN DURAND M.D. >
--- NOTE | 2017-03-31 22:14 | [facility] DISCHARGE SUMMARY E ---
[facility] Discharge Summary NAME: YOUNG POPE AGE: 66Y ADMITTED: 03/31/2017 DISCHARGED: 03/31/2017 HISTORY OF PRESENT ILLNESS AND HOSPITAL COURSE: This is a 66-year-old patient who underwent cataract extraction of the left eye. DIAGNOSIS: Cataract, left eye. HOSPITAL COURSE: She underwent surgery because she was having difficulty driving at night secondary to glare from headlights. DISCHARGE INSTRUCTIONS: 1. She should be on a regular diet. 2. No bending at her waist and no heavy lifting. 3. She should use her Besivance, Ilevro, and Durezol at 3 p.m. and 8 p.m. and sleep with a rigid shield. 4. I will see her for her one-day postoperative tomorrow. DICTATING PHYSICIAN: JEAN DURAND M.D. [id number] PHY#: [id number] ID: [id number] JOB#: [id number] ACCT: [id number] cc:JEAN DURAND M.D. >
== END 2017-03-31 10:23 | disposition home or self-care (01) ==
LOC: SC 07:44
PROVIDERS: ATTEND Internal Medicine
PROC: 08RK3JZ Replacement of Left Lens with Synthetic Substitute, Percutaneous Approach (ICD-10-PCS; principal; 2017-03-31 09:30)
DX: H25.813 Combined forms of age-related cataract, bilateral (principal); H31.002 Unspecified chorioretinal scars, left eye; E11.9 Type 2 diabetes mellitus without complications; J44.9 Chronic obstructive pulmonary disease, unspecified; Z79.4 Long term (current) use of insulin; Z86.73 Personal history of transient ischemic attack (TIA), and cerebral infarction without residual deficits; Z79.82 Long term (current) use of aspirin; Z79.899 Other long term (current) drug therapy; Z79.01 Long term (current) use of anticoagulants; Z79.84 Long term (current) use of oral hypoglycemic drugs; Z79.51 Long term (current) use of inhaled steroids; I25.2 Old myocardial infarction
CPT/HCPCS: 66984; 82962; V2632; J2250; J3490 ×2; A9270; J0171; 142

== ENCOUNTER 2017-04-21 06:22 | Day surgery (SDC) | payer MEDICARE, OTHER ==
[~2017-04-21 06:22] MED LIST changes: +KETOROLAC TROMETHAMINE 0.45% 4 DROP/0.4 ML DROPERETTE OD PRN; -KETOROLAC TROMETHAMINE 0.45% 4 DROP/0.4 ML DROPERETTE OS PRN
[2017-04-21] MEDS ORDERED: FENTANYL CITRATE INJ/PF 100 MCG/2 ML AMPUL ONE (06:41)
[2017-04-21] MEDS ORDERED: MIDAZOLAM 2 MG/2 ML INJ ONE ×2 (06:41)
[2017-04-21] MEDS: TROPICAMIDE 1% OPH SOLN 3 ML OD PRN ×3 (06:50→07:10)
[2017-04-21] MEDS: CYCLOPENTOLATE 0.2%/PHENYLEPHRINE 1% OPH SOLN 2 ML OD PRN ×3 (06:50→07:10)
[2017-04-21] MEDS: BESIFLOXACIN HCL 0.6% OPH SUSP 5 ML BOTTLE OD PRN ×4 (06:50→07:55)
[2017-04-21] MEDS: TETRACAINE HCL 0.5% OPH SOLN 2 ML OD PRN ×3 (06:51→07:33)
[2017-04-21] MEDS ORDERED: EPINEPHRINE INJ/PF 1 MG/1 ML AMPULE ONE (07:08)
[2017-04-21] MEDS ORDERED: LIDOCAINE 1% INJ-PF (10 MG/ML) 30 ML SDV ONE (07:08)
[2017-04-21] MEDS: CHONDR SU A NA/HYALUR INTRAOC KIT (SURGICARE) ONE ×2 (07:47)
--- NOTE | 2017-04-22 07:17 | [facility] OPERATIVE REPORT E ---
[facility] Operative Report NAME: YOUNG POPE AGE: 66Y DATE OF SURGERY: 04/21/2017 ROOM: PREOPERATIVE DIAGNOSIS: CATARACT, RIGHT EYE. POSTOPERATIVE DIAGNOSIS: CATARACT, RIGHT EYE. OPERATION: Cataract extraction with intraocular lens implant of the right eye. SURGEON: JEAN DURAND M.D. ANESTHESIA: Topical. PROCEDURE: After obtaining appropriate consent, the patient's right eye was prepped and draped in sterile fashion as well as the surgeon in a sterile manner and cataract surgery was started. First a paracentesis blade was used to make a small side-port incision. Viscoelastic was used to inflate the anterior chamber. Next a 2.4 mm incision was made with the paracentesis blade. A continuous capsulorrhexis incision was made using a cystotome and Utrata forceps. Following this hydrodissection was carried out to make the lens fully loose and mobile and it was rotated 90 degrees. Following this, a kbcmdo-[id number]-mhmzztn technique was used to phacoemulsify the lens with a CDE of 4.92. The remaining cortex was removed with irrigation/aspiration. Provisc was instilled into the capsular bag to inflate the bag. A SN60WF, 20.0 diopter lens was placed. The remaining viscoelastic material was removed with irrigation/aspiration. Following this, a 10-0 nylon suture was used to close the incision and it was found to be watertight. Vigamox was instilled in the eye and a protective shield was placed over the eye. The patient returned to the postoperative recovery in stable condition. DICTATING PHYSICIAN: JEAN DURAND M.D. [id number] PHY#: [id number] ID: [id number] JOB#: [id number] ACCT: [id number] cc:JEAN DURAND M.D. >
--- NOTE | 2017-04-22 07:27 | [facility] DISCHARGE SUMMARY E ---
[facility] Discharge Summary NAME: YOUNG POPE AGE: 66Y ADMITTED: 04/21/2017 DISCHARGED: 04/21/2017 HOSPITAL COURSE: This is a 66-year-old patient who underwent cataract extraction of the right eye, diagnosed as cataract right eye. She underwent surgery because she was having difficulty reading small print like medicine bottles. She should be on a regular diet. No bending at her waist. No heavy lifting. Patient should use her Besivance, Ilevro, and Durezol at 3 p.m. and 8 p.m. and sleep with a rigid shield, and I will see her for one day postoperative tomorrow. DICTATING PHYSICIAN: JEAN DURAND M.D. [id number] PHY#: [id number] ID: [id number] JOB#: [id number] ACCT: [id number] cc:JEAN DURAND M.D. > MTDD
== END 2017-04-21 08:32 | disposition home or self-care (01) ==
LOC: SC 06:22
PROVIDERS: ATTEND Internal Medicine
PROC: 08RJ3JZ Replacement of Right Lens with Synthetic Substitute, Percutaneous Approach (ICD-10-PCS; principal; 2017-04-21 07:30)
DX: H25.811 Combined forms of age-related cataract, right eye (principal); Z96.1 Presence of intraocular lens; Z98.42 Cataract extraction status, left eye
CPT/HCPCS: 66984; 82962; V2632; J2250; J3490 ×2; A9270; J0171; J3010; 142

== ENCOUNTER 2017-08-05 11:00 | Observation (INO) | payer MEDICARE, OTHER ==
[2017-08-05] MEDS ORDERED: ASPIRIN 81 MG TABLET, CHEWABLE PO ONE (11:26)
--- NOTE | 2017-08-05 11:26 | ER Document Report ---
ED Medical Screen (RME) - General Chief Complaint: Chest Pain Stated Complaint: CHEST PAIN Time Seen by Provider: 08/05/17 11:24 Notes: Patient is complaining of anterior chest pain since yesterday. It goes into his right arm. Has some nausea. Feels short of breath and weak, as well. Patient has had a history of coronary artery disease with 9 heart attacks in the past. He has had coronary bypass surgery. History of CHF. Had stent placed in 1 of his coronary arteries in [place] a couple of months ago. TRAVEL OUTSIDE OF THE [place] IN LAST 30 DAYS: No - Related Data Allergies/Adverse Reactions: No Known Allergies Allergy (Verified 08/05/17 11:13) Past Medical History - Past Medical History Cardiac Medical History: Reports: Hx Congestive Heart Failure, Hx Coronary Artery Disease, Hx Heart Attack - x 7 LAST IN OCT 2014, Hx Hypercholesterolemia , Hx Hypertension Pulmonary Medical History: Reports: Hx COPD Denies: Hx Asthma Neurological Medical History: Denies: Hx Cerebrovascular Accident, Hx Seizures Endocrine Medical History: Reports: Hx Diabetes Mellitus Type 2 Renal/ Medical History: Denies: Hx Peritoneal Dialysis GI Medical History: Reports: Hx Hiatal Hernia. Denies: Hx Hepatitis, Hx Ulcer Psychiatric Medical History: Reports: Hx Depression Infectious Medical History: Denies: Hx Hepatitis Past Surgical History: Reports: Hx Appendectomy, Hx Cardiac Catheterization - 3- 4 stents, Hx Cardiac Surgery - trip bypass, Hx Open Heart Surgery - TRIPLE BYPASS STENT OCT. Denies: Hx Pacemaker - Immunizations Hx Diphtheria, Pertussis, Tetanus Vaccination: Yes Physical Exam - Vital signs Vitals: Temp Pulse Resp BP Pulse Ox 97.8 F 70 20 130/70 H 95 08/05/17 11:15 08/05/17 11:15 08/05/17 11:15 08/05/17 11:15 08/05/17 11:15 Course - Vital Signs Vital signs: Temp Pulse Resp BP Pulse Ox 97.8 F 70 20 130/70 H 95 08/05/17 11:15 08/05/17 11:15 08/05/17 11:15 08/05/17 11:15 08/05/17 11:15
[2017-08-05 11:56] LABS: ABSOLUTE BASOPHILS # (AUTO) 0.1 10^3/uL (0.0-0.2); ABSOLUTE EOSINOPHILS # (AUTO) 0.3 10^3/uL (0.0-0.6); ABSOLUTE LYMPHOCYTES (AUTO) 2.9 10^3/uL (0.5-4.7); ABSOLUTE MONOCYTES (AUTO) 0.8 10^3/uL (0.1-1.4); ABSOLUTE NEUT (AUTO) 5.2 10^3/uL (1.7-8.2); BASOPHILS % (AUTO) 1.2 % (0-2); EOSINOPHILS % (AUTO) 3.7 % (0-6); HEMATOCRIT 45.1 % (37.9-51.0); HEMOGLOBIN 15.3 g/dL (13.5-17.0); HGB HCT DIFFERENCE 0.8; LYMPHOCYTES % (AUTO) 30.9 % (13-45); MEAN CORPUSCULAR HEMOGLOBIN 28.4 pg (27.0-33.4); MEAN CORPUSCULAR HGB CONC 33.8 g/dL (32.0-36.0); MEAN CORPUSCULAR VOLUME 84 fl (80-97); MONOCYTES % (AUTO) 8.3 % (3-13); RED BLOOD COUNT 5.38 10^6/uL (4.35-5.55); RED CELL DISTRIBUTION WIDTH 15.1 % (11.5-14.0); SEGMENTED NEUTROPHILS % (AUTO) 55.9 % (42-78); WHITE BLOOD COUNT 9.2 10^3/uL (4.0-10.5)
--- NOTE | 2017-08-05 12:08 | RADIOLOGY REPORT (SQ) ---
EXAM DESCRIPTION: CHEST SINGLE VIEW COMPLETED DATE/TIME: 08/05/2017 11:58 am REASON FOR STUDY: Chest pain COMPARISON: 10/21/2016 EXAM PARAMETERS: NUMBER OF VIEWS: One view. TECHNIQUE: Single frontal radiographic view of the chest acquired. RADIATION DOSE: NA LIMITATIONS: None. FINDINGS: LUNGS AND PLEURA: No opacities, masses or pneumothorax. No pleural effusion. MEDIASTINUM AND HILAR STRUCTURES: No masses. Contour normal. HEART AND VASCULAR STRUCTURES: Heart normal in size. Normal vasculature. BONES: Mild scoliosis. HARDWARE: Sternotomy wires. OTHER: No other significant finding. IMPRESSION: NO ACUTE RADIOGRAPHIC FINDING IN THE CHEST. TECHNICAL DOCUMENTATION: JOB ID: [id number] [employer]- All Rights Reserved
[2017-08-05 12:23] LABS: ALANINE AMINOTRANSFERASE 56 U/L (21-72); ALBUMIN 4.5 g/dL (3.5-5.0); ALKALINE PHOSPHATASE 101 U/L (38-126); ANION GAP 17 (5-19); ASPARTATE AMINO TRANSFERASE 32 U/L (17-59); BILIRUBIN,DIRECT 0.4 mg/dL (0.0-0.4); BILIRUBIN,TOTAL 0.6 mg/dL (0.2-1.3); BLOOD UREA NITROGEN 17 mg/dL (7-20); CALCIUM 9.3 mg/dL (8.4-10.2); CARBON DIOXIDE 23 mmol/L (22-30); CHLORIDE 102 mmol/L (98-107); CREATINE KINASE 73 U/L (55-170); CREATININE RESULT 1.03 mg/dL (0.52-1.25); GLUCOSE 124 mg/dL (75-110); POTASSIUM 4.1 mmol/L (3.6-5.0); TOTAL PROTEIN 6.8 g/dL (6.3-8.2)
[2017-08-05 12:35] LABS: CREATINE KINASE MB 0.75 ng/mL (<4.55)
[2017-08-05 12:36] LABS: TROPONIN I < 0.012 ng/mL
--- NOTE | 2017-08-05 14:43 | EKG REPORT ---
SEVERITY:- ABNORMAL ECG - SINUS RHYTHM INCOMPLETE RIGHT BUNDLE BRANCH BLOCK : Confirmed by: Ashley Sifuentes MD 05-Aug-2017 14:42:41
--- NOTE | 2017-08-05 15:02 | ER Document Report ---
ED Cardiac - General Chief Complaint: Chest Pain Stated Complaint: CHEST PAIN Time Seen by Provider: 08/05/17 11:24 Mode of Arrival: Ambulatory Information source: Patient Notes: Patient is a 67-year-old morbidly obese white male comes to the emergency room complaining of anterior chest pain with radiation down his right arm since yesterday. He states he has not felt good for the past couple of days he has had some shortness of breath some dyspnea on exertion as well. He has had a little nausea without vomiting. Patient states that he is under a lot of stress his younger brother age 59 on August 02, 2017 in his sleep of a heart attack. Patient states that he warned him multiple times about his back pain that he should have it checked and his brother never did patient is scared that something may be happening to him again. Patient has a long history of cardiac problems according to patient he has had 9 heart attacks in the past he recently had a stent placed sometime in October for some anastomosis of revascularization of 1 of his arteries from a CABG done several years ago. Patient states he is scared because he is living on one stent that if it occludes he will . Patient also has a history of congestive heart failure. TRAVEL OUTSIDE OF THE [place] IN LAST 30 DAYS: No - HPI Patient complains to provider of: Chest pain, Chest tightness, Shortness of breath Use of: denies: Alcohol, Amphetamines, Bath salts, Caffeine, Cocaine, Decongestants, Other Was the onset of pain: Gradual When did pain begin: 2 days ago Is the pain a: New problem Chest pain location: Substernal Quality of pain: Moderate, Achy, Tightness Chest pain radiation location: Right arm, Right shoulder, Neck Severity now: Moderate Severity at worst: Moderate Pain level currently: 3 Chest pain precipitating factors: Physical Exertion Cardiac risk factors: Hypertension, + Family history, Dyslipidemia, Hx CHF, Hx MS Positive cardiac history: Yes Associated symptoms: Anxiety, Nausea/vomiting, Neck pain, Shortness of breath, Weakness Exacerbated by: Activity, Emotional stress, Coughing Relieved by: Nothing Similar symptoms previously: Yes Recently seen / treated by doctor: Yes - Related Data Allergies/Adverse Reactions: No Known Allergies Allergy (Verified 08/05/17 11:13) Past Medical History - General Information source: Patient - Social History Smoking Status: Never Smoker Chew tobacco use (# tins/day): Yes Smoking Education Provided: No Frequency of alcohol use: None Drug Abuse: None Family History: Reviewed & Not Pertinent Patient has suicidal ideation: No Patient has homicidal ideation: No - Past Medical History Cardiac Medical History: Reports: Hx Congestive Heart Failure, Hx Coronary Artery Disease, Hx Heart Attack - x 7 LAST IN OCT 2014, Hx Hypercholesterolemia , Hx Hypertension Pulmonary Medical History: Reports: Hx COPD Denies: Hx Asthma Neurological Medical History: Denies: Hx Cerebrovascular Accident, Hx Seizures Endocrine Medical History: Reports: Hx Diabetes Mellitus Type 2 Renal/ Medical History: Denies: Hx Peritoneal Dialysis GI Medical History: Reports: Hx Hiatal Hernia. Denies: Hx Hepatitis, Hx Ulcer Psychiatric Medical History: Reports: Hx Depression Infectious Medical History: Denies: Hx Hepatitis Past Surgical History: Reports: Hx Appendectomy, Hx Cardiac Catheterization - 3- 4 stents, Hx Cardiac Surgery - trip bypass, Hx Open Heart Surgery - TRIPLE BYPASS STENT OCT. Denies: Hx Pacemaker - Immunizations Hx Diphtheria, Pertussis, Tetanus Vaccination: Yes Hx Pneumococcal Vaccination: 08/12/12 Review of Systems - Review of Systems Constitutional: Weakness EENT: No symptoms reported Cardiovascular: Chest pain, Dyspnea, Lightheaded Respiratory: Cough, Short of breath Gastrointestinal: No symptoms reported Genitourinary: No symptoms reported Male Genitourinary: No symptoms reported Skin: No symptoms reported Hematologic/Lymphatic: No symptoms reported Neurological/Psychological: No symptoms reported -: Yes All other systems reviewed and negative Physical Exam - Vital signs Vitals: Temp Pulse Resp BP Pulse Ox 97.8 F 70 20 130/70 H 95 08/05/17 11:15 08/05/17 11:15 08/05/17 11:15 08/05/17 11:15 08/05/17 11:15 Interpretation: Hypertensive - General General appearance: Alert, Other - Uncomfortable appearing - HEENT Head: Normocephalic, Atraumatic Eyes: Normal Tympanic membrane: Normal. No: Bulging, Hemotympanum, Injected, Loss of landmarks, Perforation, Purulent effusion, Retracted, Serous effusion, Other Sinus: Normal Nasal: Normal Mouth/Lips: Normal Mucous membranes: Moist Pharynx: Normal Neck: Normal - Respiratory Respiratory status: No respiratory distress Chest status: Nontender Breath sounds: Decreased air movement, Other - Auscultation patient's lung pisano shows he has bilateral breath sounds breath sounds are moderately decreased throughout. There is no noticeable auditory wheeze rales or rhonchi noted. Chest palpation: Normal. No: Flail segment, Wickes frothy sputum, Purulent sputum , Subcutaneous emphysema, Sucking chest wound, Tender, Ecchymosis, Wounds, Other - Cardiovascular Rhythm: Regular Heart sounds: Normal auscultation Murmur: No - Abdominal Inspection: Normal Distension: Distended, Other - Examination of the abdomen show patient has a moderately distended abdomen although there is no overt tympany noted. Patient is just very faint minute diffuse tenderness that is nonspecific just uncomfortable. Bowel sounds: Normal Tenderness: Tender Organomegaly: No organomegaly - Back Back: Normal, Nontender - Extremities General upper extremity: Tender General lower extremity: Normal inspection Shoulder: Tender, Other - Examination of patient's right shoulder shows some mild tenderness to palpation on the anterior portion around the rotator cuff area. Patient has full range of motion although has some discomfort with maximum rotation. - Neurological Neuro grossly intact: Yes Cognition: Normal Orientation: AAOx4 [place] Coma Scale Eye Opening: Spontaneous [place] Coma Scale Verbal: Oriented [place] Coma Scale Motor: Obeys Commands [place] Coma Scale Total: 15 Speech: Normal - Skin Skin Temperature: Warm Skin Moisture: Dry Skin Color: Normal, Wickes, Pale Course - Vital Signs Vital signs: Temp Pulse Resp BP Pulse Ox 97.8 F 70 13 121/69 96 08/05/17 11:15 08/05/17 11:15 08/05/17 12:08 08/05/17 12:08 08/05/17 12:08 - Laboratory Result Diagrams: 08/05/17 11:50 08/05/17 11:50 Laboratory results interpreted by me: 08/05/17 08/05/17 11:50 11:50 RDW 15.1 H Glucose 124 H - Diagnostic Test Radiology reviewed: Reports reviewed - No acute findings on chest x-ray. - Transfer of Care Notes: 08/05/17 15:22 Patient stay has been relatively uneventful at this time. He has been in room 11 and relaxing. Cardiac workup is benign at present. The concerns at this time or patient states this is similar to his presentation back in October when they did have a stent placement. I also believe a contributing factor to this may be the fact that patient's brother who is younger at age 59 on August 03 of a MS in his sleep. I believe there may be a anxiety component to this as well. Patient has been relaxed while in ER he has actually been asleep. He is gotten aspirin and his pain levels down to 1 or 2 currently I was just in the room patient's blood pressure is 117/59 with a heart rate of 64 and he is satting 100%. His EKG did not show anything for acute concerns at this time. Patient really needs to come in and rule out. Discharge - Discharge Clinical Impression: Chest pain Qualifiers: Chest pain type: unspecified Qualified Code(s): R07.9 - Chest pain, unspecified Condition: Fair Disposition: ADMITTED OBSERVATION Admitting Provider: Dr Vasquez Unit Admitted: Telemetry Referrals: KEITH GREEN MD [Primary Care Provider] - Follow up as needed
[2017-08-05] MEDS ORDERED: ACETAMINOPHEN 325 MG TABLET PO PRN (15:54)
[2017-08-05] MEDS ORDERED: ZOLPIDEM TARTRATE 5 MG TABLET PO PRN (15:54)
[2017-08-05] MEDS ORDERED: ONDANSETRON HCL INJ/PF 4 MG/2 ML SDV IV PRN (15:54)
[2017-08-05] MEDS ORDERED: IPRATROPIUM/ALBUTEROL 0.5-2.5 MG/3 ML AMPUL NEB PRN (15:54)
[2017-08-05] MEDS ORDERED: INSULIN LISPRO 100 UNIT/ML 3 ML VIAL SUBCUT PRN (16:21)
[2017-08-05] MEDS ORDERED: GLUCAGON,HUMAN RECOMB 1 MG INJ IM PRN (16:21)
[2017-08-05] MEDS ORDERED: DEXTROSE 50%-WATER 25 GM/50 ML DISP.SYRIN IV PRN ×2 (16:21)
[2017-08-05] MEDS ORDERED: DEXTROSE 40% GEL 15 GM TUBE PO PRN ×2 (16:21)
--- NOTE | 2017-08-05 16:55 | PDOC CONSULTATION ---
Consultation Consult Date: 08/05/17 Attending physician:: LUCILA FRANKLIN Consult reason:: Chest pain History of Present Illness Admission Date/PCP: 08/05/17 15:43 KEITH GREEN MD Patient complains of: Chest pain History of Present Illness: Patient is a 67-year-old morbidly obese white male comes to the emergency room complaining of anterior chest pain with radiation down his right arm since yesterday. He states he has not felt good for the past couple of days he has had some shortness of breath some dyspnea on exertion as well. He has had a little nausea without vomiting. Patient states that he is under a lot of stress his younger brother age 59 on August 02, 2017 in his sleep of a heart attack. Patient states that he warned him multiple times about his back pain that he should have it checked and his brother never did patient is scared that something may be happening to him again. Patient has a long history of cardiac problems according to patient he has had 9 heart attacks in the past he recently had a stent placed sometime in October for some anastomosis of revascularization of 1 of his arteries from a CABG done several years ago. Patient states he is scared because he is living on one stent that if it occludes he will . Patient also has a history of congestive heart failure. Patient claims to be under significant stress. He also gives history of PTSD. Patient has history of sleep apnea and claims to be compliant with CPAP use. Patient claims that he has had few falls and his heart rate has been chronically slow and is being monitored closely. There was some talk about pacemaker placement in the past. He claims that he monitors his heart rate pretty closely. Past Medical History Cardiac Medical History: Reports: Congestive Heart Failure, Coronary Artery Disease, Myocardial Infarction - x 7 LAST IN OCT 2014, Hyperlipidema, Hypertension Pulmonary Medical History: Reports: Chronic Obstructive Pulmonary Disease (COPD) Denies: Asthma Neurological Medical History: Denies: Seizures Endocrine Medical History: Reports: Diabetes Mellitus Type 2 GI Medical History: Reports: Hiatal Hernia Denies: Hepatitis Psychiatric Medical History: Reports: Depression Hematology: Denies: Anemia, Sickle Cell Disease Past Surgical History Past Surgical History: Reports: Appendectomy, Cardiac Catheterization - 3-4 stents Denies: Pacemaker Social History Information Source: Patient Smoking Status: Never Smoker Frequency of Alcohol Use: None Drugs: Marijuana - Advance Directive Resuscitation Status: Full Code Surrogate healthcare decision maker:: Patient's is the surrogate decision-maker Family History Family History: Reviewed & Not Pertinent Parental Family History Reviewed: Yes Children Family History Reviewed: Yes Sibling(s) Family History Reviewed.: Yes - Positive for CAD and SCD and family members Medication/Allergy Home Medications: Alprazolam [Xanax] 1 mg PO Q12 08/05/17 Isosorbide Mononitrate [Isosorbide Mononitrate ER] 60 mg PO DAILY 08/05/17 Lurasidone HCl [Latuda 60 mg Tablet] 60 mg PO DAILY 08/05/17 Rosuvastatin Calcium [Crestor] 40 mg PO QHS 08/05/17 Ticagrelor [Brilinta 90 mg Tablet] 90 mg PO Q12 08/05/17 Allergies/Adverse Reactions: No Known Allergies Allergy (Verified 08/05/17 11:13) Review of Systems Review of Systems: Please see history of present illness and past medical history as wall. Constitutional: No fever or chills reported. Head : No recent chronic headaches, recent head injury. Eyes: No recent eye pain, diplopia, redness, discharge, acute visual changes. Ears: No recent chronic ear pain, acute hearing loss, ear discharge. Oral cavity: No recent ulcerations, bleeding, oral cavity discomfort. Neck: No recent acute neck pain reported. Hematologic: No recent easy bruising or bleeding or hematologic malignancy reported. Lymphatic: No recent lymphatic malignancy, chronic lymphadenopathy reported yet Cardiovascular system review: See history of present illness. Respiratory system review: No recent chronic cough, hemoptysis, blood clots in the lungs reported. Shortness of breath on exertion Gastrointestinal system review: Negative for any recent acute or chronic abdominal pain, hematemesis, melena, recent change in bowel habits. Genitourinary system review: No recent acute or chronic hematuria, flank pain, UTI etc. reported. Skin system review: Negative for any recent abnormal bruising, no rash, no pruritus reported. Neurologic: No prior history of strokes, mini strokes, seizure disorder. History of falls Psychologic: No history of major psychosis or major depression reported. PTSD and depression reported Musculoskeletal: Minor aches and pains reported. No acute joint swelling reported. History of falls Endocrine: No recent polyuria, polydipsia, recent heat or cold intolerance. Physical Exam Vital Signs: Temp Pulse Resp BP Pulse Ox 97.8 F 70 17 107/38 L 96 08/05/17 11:15 08/05/17 11:15 08/05/17 16:01 08/05/17 16:01 08/05/17 16:01 Exam: GENERAL: well-nourished and in no acute distress. Alert and oriented x3 HEAD: Atraumatic, normocephalic. EYES: Pupils equal round and reactive to light, extraocular movements intact, sclera anicteric, conjunctiva are normal. ENT: TMs normal, nares patent, oropharynx clear without exudates. Moist mucous membranes. No oral ulcerations or bleeding gums noted NECK: supple without lymphadenopathy. Trachea is central. No cervical or axillary lymphadenopathy noted. Carotids are 2+, JVD WNL LUNGS: Respiration seems nonlabored, no significant accessory muscle action noted. Breath sounds clear to auscultation bilaterally and equal noted. No wheezes rales or rhonchi noted. No significant dullness noted on percussion. CHEST: Palpation of the chest wall shows no significant chest wall tenderness. No other significant abnormalities noted. HEART: [place] [employer], No PSH, 1/6 KATY aortic area, 1/6 celaya systolic murmur mitral area, no rubs, no gallops. ABDOMEN: Soft, no significant tenderness appreciated, normoactive bowel sounds. No guarding, no rebound. No rigidity noted . No masses appreciated. EXTREMITIES: Pedal pulses are 1-2+, no calf tenderness noted. No clubbing or cyanosis.trace to 1+ pedal edema noted NEUROLOGICAL: Focused neurological exam showed no significant neurologic deficit. Normal speech, no focal weakness appreciated. PSYCH: Normal mood, normal affect. Judgment and insight within normal limits. SKIN: No significant ecchymosis, rash, ulcerations or signs of pruritus noted. MUSCULOSKELETAL EXAM: No significant joint swelling noted. Results EKG Comments: Sinus rhythm, incomplete right bundle branch block pattern. Secondary ST-T wave changes noted in V1 and V2 Impressions: Chest X-Ray 08/05/17 11:26 IMPRESSION: NO ACUTE RADIOGRAPHIC FINDING IN THE CHEST. Assessment & Plan - Diagnosis (1) Chest pain Qualifiers: Chest pain type: unspecified Qualified Code(s): R07.9 - Chest pain, unspecified Is this a current diagnosis for this admission?: Yes (2) Coronary artery disease Qualifiers: Coronary Disease-Associated Artery/Lesion type: unspecified vessel or lesion type [place] vs. transplanted heart: [place] heart Associated angina: angina presence unspecified Qualified Code(s): I25.10 - Atherosclerotic heart disease of [place] coronary artery without angina pectoris Is this a current diagnosis for this admission?: Yes (3) Diabetes Qualifiers: Diabetes mellitus type: type 2 Diabetes mellitus complication status: with unspecified complications Diabetes mellitus watermaster insulin use: unspecified watermaster insulin use status Qualified Code(s): E11.8 - Type 2 diabetes mellitus with unspecified complications Is this a current diagnosis for this admission?: Yes (4) Dyslipidemia Is this a current diagnosis for this admission?: Yes (5) Sleep apnea syndrome Qualifiers: Sleep apnea type: unspecified type Qualified Code(s): G47.30 - Sleep apnea , unspecified (6) Obesity Qualifiers: Obesity type: unspecified obesity type - Notes Notes: Chest pain: Most likely anxiety panic disorder/gastroesophageal reflux/cardiac ischemia. Patient being admitted for observation because of his significant cardiac history. Recommend beta-gautam, LAISHA inhibitor, statin, dual antiplatelet therapy. Obtain records from [facility]. If patient has positive enzymes are any EKG changes recommend tertiary care transfer for heart catheterization. Coronary artery disease: Please see plans above. Diabetes : Recommend good control of blood sugar. Avoid hypo-or hyperglycemia. Hyperlipidemia: Recommend high potency statin therapy. Sleep apnea syndrome: Patient advised to bring his CPAP machine from home and started. Obesity: Patient encouraged in weight loss. - Time Time Spent: 30 to 50 Minutes - CODE STATUS was discussed, patient remains full code. Surrogate decision-maker patient's . Multiple medical problems were addressed. More than 50% of the time spent coordinating care, discussing management plans with involved caregivers. Management plans discussed with involved personnels. Medical decision making was of moderate to high complexity , patient's has multiple comorbidities. Medications reviewed and adjusted accordingly: Yes
[2017-08-05] MEDS ORDERED: ENOXAPARIN SODIUM INJ 40 MG/0.4 ML DISP.SYRIN SUBCUT ONE (17:00)
[2017-08-05] MEDS ORDERED: ATORVASTATIN CALCIUM 40 MG TABLET PO ONE (17:00)
[2017-08-05] MEDS ORDERED: RAMIPRIL 10 MG CAPSULE PO ONE (17:00)
[2017-08-05] MEDS ORDERED: NITROGLYCERIN 5 MG (0.2 MG/HR) PATCH.TD24 TD ONE (17:00)
[2017-08-05] MEDS ORDERED: METOPROLOL SUCCINATE 25 MG TAB.SR.24H PO ONE (17:00)
[2017-08-05] MEDS: LANSOPRAZOLE 15 MG TAB.RAP.DR PO SCH (17:30)
[2017-08-05] MEDS ORDERED: DOCUSATE SODIUM 100 MG CAPSULE PO SCH (18:00)
[2017-08-05] MEDS ORDERED: TICAGRELOR 90 MG TABLET PO SCH (18:00)
--- NOTE | 2017-08-05 20:28 | HISTORY AND PHYSICAL E ---
History and Physical NAME: YOUNG POPE : 1950 AGE: 67Y ADMITTED: 08/05/2017 ROOM: 414 CHIEF COMPLAINT: Chest pain. HISTORY OF THE PRESENT ILLNESS: The patient is a pleasant 67-year-old male, he is a Dr. Sol patient, history of coronary artery disease, COPD, asthma, diabetes, hypertension, obstructive sleep apnea. He had a CABG 5 years ago and a stent was placed earlier this year in October. Significant family history of heart disease, 1 of his brothers last month with heart attack while he was sleeping. The patient came to the emergency room with a chief complaint of chest pain on the right side radiating to the left associated with difficulty breathing. There is no nausea, vomiting, or diarrhea. He had a normal EKG and negative troponin. REVIEW OF SYSTEMS: Twelve systems are reviewed and are negative except for the History of the Present Illness. PAST MEDICAL HISTORY: Significant for coronary artery disease, status post CABG, diabetes type 2, hypertension, stent placement in 10/29. PAST SURGICAL HISTORY: 1. CABG. 2. Skin cancer removal. PERSONAL HISTORY: He quit alcohol, no longer drinking alcohol. He stopped smoking at 40. , lives with his . His is the caregiver. The patient is under a lot of stress. FAMILY HISTORY: His father has cancer and mother had diabetes. HOME MEDICATIONS: 1. Brilinta 90 mg p.o. b.i.d. 2. Crestor 40 mg daily. 3. Ramipril 10 mg daily. 4. Inderal 40 mg daily. 5. Lyrica 100 mg t.i.d. 6. Nitroglycerine 0.4 mg p.r.n. 7. Nepafenac 1 drop every 8 hours. 8. Metformin 1 gram twice a day. 9. Latuda 40 mg daily. 10. Lantus 20 units at bedtime. 11. Nexium. 12. Lexapro. 13. Durezol 1 drop twice a day. 14. Wellbutrin SR 200 mg twice a day. 15. Besivance drops. 16. Aspirin 81 mg daily. 17. Xanax 2 mg b.i.d. 18. Albuterol inhaler. ALLERGIES: No allergy to medication. PHYSICAL EXAMINATION: GENERAL: The patient is lying in bed comfortable, not in distress. VITAL SIGNS: Afebrile, heart rate 54, respiratory 17, blood pressure 107/78, saturation is 96% room air. HEENT: Head is normocephalic, atraumatic. Pupils are round and reactive to light and accommodation bilaterally. Extraocular movements are intact. Ears: Tympanic membranes are intact bilaterally. No discharge from the ears. No discharge from the nose. NECK: Supple. No increased JVD, no thyromegaly, and no lymphadenopathy. CARDIOVASCULAR: Normal S1, S2. Regular rate and rhythm. No murmur and no gallop. RESPIRATORY: Lungs are clear. ABDOMEN: Soft and nontender. MUSCULOSKELETAL: No edema. NEUROLOGIC: Awake, alert. SKIN: No rash. LABORATORY DATA: White blood count is 9.2, hemoglobin 15. Sodium 142, potassium 4.1, creatinine 1.3. Cardiac enzymes negative. DIAGNOSTIC STUDIES: EKG unremarkable. IMAGING STUDIES: chest x-ray unremarkable. ASSESSMENT: 1. Chest pain, rule out [place]. 2. Coronary artery disease, status post CABG 5 years ago. 3. History of non-STEMI October of this year with a stent placement. 4. Diabetes type 2. 5. Hypertension. 6. Anxiety. PLAN: 1. We will admit the patient to rule out [place]. 2. Three sets of cardiac enzymes. 3. EKG in the morning. 4. Nitroglycerine paste. 5. Aspirin 325 mg p.o. daily. 6. Toprol 25 mg daily. 7. Lipitor 40 mg daily. 8. Oxygen. 9. Morphine. 10. Continue his home medication. 11. Consult cardiology, Dr. Dubon will see the patient. CODE STATUS: Full code. TIME SPENT: One hour. DICTATING PHYSICIAN: YOMI GUAJARDO M.D. [id number] PHY#: [id number] ID: [id number] JOB#: [id number] ACCT: [id number] cc:YOMI GUAJARDO M.D. > MTDD
[2017-08-05] MEDS ORDERED: RANOLAZINE 500 MG TAB.SR.12H PO SCH (22:00)
[2017-08-06] MEDS: LANSOPRAZOLE 15 MG TAB.RAP.DR PO SCH (05:43)
[2017-08-06 05:49] LABS: ALANINE AMINOTRANSFERASE 53 U/L (21-72); ALBUMIN 4.4 g/dL (3.5-5.0); ALKALINE PHOSPHATASE 95 U/L (38-126); ANION GAP 16 (5-19); ASPARTATE AMINO TRANSFERASE 31 U/L (17-59); BILIRUBIN,DIRECT 0.4 mg/dL (0.0-0.4); BILIRUBIN,TOTAL 0.8 mg/dL (0.2-1.3); BLOOD UREA NITROGEN 16 mg/dL (7-20); CALCIUM 9.5 mg/dL (8.4-10.2); CARBON DIOXIDE 20 mmol/L (22-30); CHLORIDE 107 mmol/L (98-107); CREATININE RESULT 0.87 mg/dL (0.52-1.25); GLUCOSE 85 mg/dL (75-110); POTASSIUM 4.7 mmol/L (3.6-5.0); SODIUM 143.2 mmol/L (137-145); TOTAL PROTEIN 6.9 g/dL (6.3-8.2)
[2017-08-06] MEDS ORDERED: HUM INSULIN NPH/REG INSULIN HM 100 UNIT/1 ML 3 ML SUBCUT SCH (08:00)
[2017-08-06 09:39] VITALS: BP 170/68
[2017-08-06] MEDS ORDERED: ENOXAPARIN SODIUM INJ 40 MG/0.4 ML DISP.SYRIN SUBCUT SCH (10:00)
[2017-08-06] MEDS ORDERED: NITROGLYCERIN 5 MG (0.2 MG/HR) PATCH.TD24 TD SCH (10:00)
[2017-08-06] MEDS ORDERED: METOPROLOL SUCCINATE 25 MG TAB.SR.24H PO SCH (10:00)
[2017-08-06] MEDS ORDERED: TICAGRELOR 90 MG TABLET PO SCH (10:00)
[2017-08-06] MEDS ORDERED: RAMIPRIL 10 MG CAPSULE PO SCH (10:00)
[2017-08-06] MEDS ORDERED: ALPRAZOLAM 0.5 MG TABLET PO ONE (10:00)
--- NOTE | 2017-08-06 10:58 | DISCHARGE SUMMARY E ---
Discharge Summary NAME: YOUNG POPE : 1950 AGE: 67Y ADMITTED: 08/05/2017 DISCHARGED: 08/06/2017 ADMISSION DIAGNOSES: 1. Chest pain, rule out [place]. 2. Coronary artery disease, status post CABG. 3. History of NSTEMI with stent placement in October of 2016. 4. Diabetes. 5. Hypertension. 6. Anxiety. DISCHARGE DIAGNOSES: 1. Chest pain, noncardiac. 2. Coronary artery disease, status post CABG 5 years ago. 3. Recent NSTEMI in October of 2016. 4. Diabetes type 2. 5. Hypertension. 6. Anxiety. CONSULTATION: Cardiology consult. HOSPITAL COURSE: The patient is a pleasant 67-year-old male who has significant past medical history of coronary artery disease. He is under a lot of stress in his family. His younger brother at age 59 from heart attack when he was sleeping. He had a long history of cardiac problems. He had a CABG 5 years ago and had a cardiac cath in October. Stent was placed at that time, October 2016. He has hyperlipidemia and hypertension. The patient came with chest pain and admitted to rule out [place]. He had 3 sets of cardiac enzymes that were negative. EKG was unremarkable. It seems his chest pain is due to anxiety. Cardiology was consulted. He was seen by Dr. Dubon who recommended to continue medical management. No intervention. He will follow with his sales engineer as outpatient. Dr. Dubon recommended LAISHA inhibitors and start on antiplatelet. He is on Brilinta 90 mg twice a day. That is to be continued. Patient is stable to be discharged home today. PHYSICAL EXAMINATION: GENERAL: Upon discharge, patient lying in bed, comfortable. Not in distress. VITALS SIGNS: Temperature 98.5, heart rate 52, blood pressure 170/68. HEENT: Head normocephalic, atraumatic. Pupils round and reactive to light and accommodation bilaterally. Extraocular movements intact. Ears: Tympanic membranes intact bilaterally. No discharge from the ears. No discharge from the nose. NECK: Supple. No increased JVD. No thyromegaly. No lymphadenopathy. CARDIOVASCULAR: Normal S1, S2. Regular rate and rhythm. No murmur. No gallop. RESPIRATORY: Lungs are clear. ABDOMEN: Soft and nontender. MUSCULOSKELETAL: No edema. NEUROLOGIC: Awake, alert. SKIN: No rash. LABORATORY: White blood count 9.2, hemoglobin 15.3. Sodium 143, potassium 4.7, creatinine 0.7. DISCHARGE INSTRUCTIONS: Discharge patient home. MEDICATIONS: 1. Xanax 1 mg p.o. q.12. 2. Brilinta 90 mg p.o. q.12. 3. Crestor 40 mg p.o. at bedtime. 4. Latuda 60 mg daily. 5. Isosorbide mononitrate 60 mg daily. FOLLOWUP: 1. Follow up with his sales engineer in 1 week. 2. Follow up with his primary care physician in 1 week. DIET: Cardiac diet. ACTIVITY: As tolerated. DICTATING PHYSICIAN: YOMI GUAJARDO M.D. [id number] PHY#: [id number] ID: [id number] JOB#: [id number] ACCT: [id number] cc:YOMI GUAJARDO M.D. > MTDD
--- NOTE | 2017-08-06 12:23 | PDOC PROGRESS REPORT ---
Subjective Progress Note for:: 08/06/17 Subjective:: Patient seems to be doing better with gradual improvement. Pt is denying any chest arm or neck discomfort. Patient denying any PND, orthopnea. Patient denied any sustained palpitations, dizziness, syncope, near syncope. Patient denying any fever chills. Patient denying any other significant discomfort. Patient is maintaining sinus rhythm. Review of systems: Rest review of systems negative. Medications: Medications have been reviewed. Physical Exam Vital Signs: Temp Pulse Resp BP Pulse Ox 98.5 F 52 L 16 170/68 H 98 08/06/17 09:36 08/06/17 09:36 08/06/17 09:36 08/06/17 09:36 08/06/17 09:36 Intake & Output 08/05/17 08/06/17 08/07/17 06:59 06:59 06:59 Intake Total 720 Output Total 950 Balance -230 Weight 94.9 kg Exam: GENERAL: well-nourished and in no acute distress. Alert and oriented x3 HEAD: Atraumatic, normocephalic. EYES: Pupils equal round and reactive to light, extraocular movements intact, sclera anicteric, conjunctiva are normal. ENT: TMs normal, nares patent, oropharynx clear without exudates. Moist mucous membranes. No oral ulcerations or bleeding gums noted NECK: supple without lymphadenopathy. Trachea is central. No cervical or axillary lymphadenopathy noted. Carotids are 2+, JVD WNL LUNGS: Respiration seems nonlabored, no significant accessory muscle action noted. Breath sounds clear to auscultation bilaterally and equal noted. No wheezes rales or rhonchi noted. No significant dullness noted on percussion. CHEST: Palpation of the chest wall shows no significant chest wall tenderness. No other significant abnormalities noted. HEART: [place] CRISIS THERAPIST, No PSH, 1/6 KATY aortic area, 1/6 celaya systolic murmur mitral area, no rubs, no gallops. ABDOMEN: Soft, no significant tenderness appreciated, normoactive bowel sounds. No guarding, no rebound. No rigidity noted . No masses appreciated. EXTREMITIES: Pedal pulses are 1-2+, no calf tenderness noted. No clubbing or cyanosis.trace to 1+ pedal edema noted NEUROLOGICAL: Focused neurological exam showed no significant neurologic deficit. Normal speech, no focal weakness appreciated. PSYCH: Normal mood, normal affect. Judgment and insight within normal limits. SKIN: No significant ecchymosis, rash, ulcerations or signs of pruritus noted. MUSCULOSKELETAL EXAM: No significant joint swelling noted. Results Laboratory Results: 08/06/17 04:06 08/06/17 04:06 Sodium 143.2 Potassium 4.7 Chloride 107 Carbon Dioxide 20 L Anion Gap 16 BUN 16 Creatinine 0.87 Est GFR ( Amer) > 60 Est GFR (Non-Af Amer) > 60 Glucose 85 Calcium 9.5 Total Bilirubin 0.8 AST 31 ALT 53 Alkaline Phosphatase 95 Total Protein 6.9 Albumin 4.4 08/05/17 08/06/17 22:00 04:06 Troponin I < 0.012 < 0.012 EKG Comments: Sinus rhythm, no acute ST-T wave changes noted Impressions: Chest X-Ray 08/05/17 11:26 IMPRESSION: NO ACUTE RADIOGRAPHIC FINDING IN THE CHEST. Assessment & Plan - Diagnosis (1) Chest pain Qualifiers: Chest pain type: unspecified Qualified Code(s): R07.9 - Chest pain, unspecified Is this a current diagnosis for this admission?: Yes (2) Coronary artery disease Qualifiers: Coronary Disease-Associated Artery/Lesion type: unspecified vessel or lesion type [place] vs. 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 EKGs and cardiac enzymes has been negative. Diabetes under reasonable control. As regards dyslipidemia continue current statin therapy. Patient will benefit from compliance with CPAP therapy and also weight loss. These were explained to the patient. Patient informed to follow-up with his family service caseworker. Did tell him that I will be happy to follow him for his sleep apnea syndrome if he wishes. Patient to report any further problems. - Time Time with patient: 15-25 minutes Medications reviewed and adjusted accordingly: Yes
--- NOTE | 2017-08-06 14:08 | EKG REPORT ---
SEVERITY:- ABNORMAL ECG - SINUS RHYTHM CONSIDER ANTERIOR INFARCT : Confirmed by: Ashley Sifuentes MD 06-Aug-2017 14:08:09
[2017-08-06] MEDS ORDERED: ATORVASTATIN CALCIUM 40 MG TABLET PO SCH (22:00)
== END 2017-08-06 10:00 | disposition home or self-care (01) ==
LOC: ER 11:00 → EH 15:43 → 4N 16:57
PROVIDERS: ADMIT Internal Medicine; ATTEND Internal Medicine
DX: R07.89 Other chest pain (principal); I25.10 Atherosclerotic heart disease of native coronary artery without angina pectoris; E11.8 Type 2 diabetes mellitus with unspecified complications; F41.9 Anxiety disorder, unspecified; I11.0 Hypertensive heart disease with heart failure; I50.9 Heart failure, unspecified; E78.5 Hyperlipidemia, unspecified; E66.01 Morbid (severe) obesity due to excess calories; G47.30 Sleep apnea, unspecified; Z68.32 Body mass index [BMI] 32.0-32.9, adult; I45.19 Other right bundle-branch block; R11.0 Nausea; I25.2 Old myocardial infarction; Z95.1 Presence of aortocoronary bypass graft; Z95.5 Presence of coronary angioplasty implant and graft; Z82.49 Family history of ischemic heart disease and other diseases of the circulatory system; Z63.4 Disappearance and death of family member; Z91.81 History of falling; Z90.49 Acquired absence of other specified parts of digestive tract; Z79.899 Other long term (current) drug therapy; Z87.891 Personal history of nicotine dependence
CPT/HCPCS: 93005 ×2; 99285; 36415 ×2; 82553; 82962; 82550; 85025; 80053 ×2; 84484 ×2; 71010; 93010 ×2; G0378 ×3; A9270 ×10; J1650; J3490

== ENCOUNTER 2018-09-04 09:09 | Emergency (ER) | payer OTHER, MEDICARE ==
[2018-09-04] MEDS ORDERED: KETOROLAC TROMETHAMINE INJ/PF 30 MG/1 ML SDV IV ONE (09:31)
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
[2018-09-04 10:15] LABS: ABSOLUTE BASOPHILS # (AUTO) 0.1 10^3/uL (0.0-0.2); ABSOLUTE EOSINOPHILS # (AUTO) 0.6 10^3/uL (0.0-0.6); ABSOLUTE LYMPHOCYTES (AUTO) 2.6 10^3/uL (0.5-4.7); ABSOLUTE MONOCYTES (AUTO) 0.7 10^3/uL (0.1-1.4); ABSOLUTE NEUT (AUTO) 3.3 10^3/uL (1.7-8.2); BASOPHILS % (AUTO) 1.4 % (0-2); EOSINOPHILS % (AUTO) 8.3 % (0-6); HEMATOCRIT 46.2 % (37.9-51.0); HEMOGLOBIN 15.4 g/dL (13.5-17.0); LYMPHOCYTES % (AUTO) 35.3 % (13-45); MEAN CORPUSCULAR HEMOGLOBIN 28.9 pg (27.0-33.4); MEAN CORPUSCULAR HGB CONC 33.4 g/dL (32.0-36.0); MEAN CORPUSCULAR VOLUME 86 fl (80-97); PLATELET COUNT 198 10^3/uL (150-450); RED BLOOD COUNT 5.35 10^6/uL (4.35-5.55); RED CELL DISTRIBUTION WIDTH 13.9 % (11.5-14.0); TOTAL CELLS COUNTED % (AUTO) 100 %; WHITE BLOOD COUNT 7.4 10^3/uL (4.0-10.5)
--- NOTE | 2018-09-04 10:15 | RADIOLOGY REPORT (SQ) ---
EXAM DESCRIPTION: CT HEAD WITHOUT COMPLETED DATE/TIME: 09/04/2018 10:01 am REASON FOR STUDY: weakness and numbness with falls COMPARISON: 10/21/2016 TECHNIQUE: Axial images acquired through the brain without intravenous contrast. Images reviewed wi th bone, brain and subdural windows. Additional sagittal and coronal reconstructions were generated. Images stored on PACS. All CT scanners at this facility use dose modulation, iterative reconstruction, and/or weight based d osing when appropriate to reduce radiation dose to as low as reasonably achievable (ALARA). [facility]: Dose Right [facility]: CareDose [facility]: Dose Right [facility]: Teradose 4D [facility]: Smart Prixing RADIATION DOSE: CT Rad equipment meets quality standard of care and radiation dose reduction techniq ues were employed. CTDIvol: 53.2 mGy. DLP: 1070 mGy-cm. mGy. LIMITATIONS: None. FINDINGS: VENTRICLES: Normal size and contour. CEREBRUM: Moderate-sized old right MCA infarction. No masses. No hemorrhage. No midline shift. No evidence for acute infarction. Minimal chronic small vessel ischemic disease involving white matter. Small old lacunar infarct in the right basal ganglion. CEREBELLUM: No masses. No hemorrhage. No alteration of density. No evidence for acute infarction. EXTRAAXIAL SPACES: No fluid collections. No masses. ORBITS AND GLOBE: No intra- or extraconal masses. Normal contour of globe without masses. CALVARIUM: No fracture. PARANASAL SINUSES: No fluid or mucosal thickening. SOFT TISSUES: No mass or hematoma. OTHER: No other significant finding. IMPRESSION: 1. No evidence of acute event involving the brain. 2. 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 COMMENT: Quality ID # [id number]: Final reports with documentation of one or more dose reduction techniques (e.g., Automated exposure control, adjustment of the mA and/or kV according to patient size, use of iterative reconstruction technique) TECHNICAL DOCUMENTATION: JOB ID: [id number] [employer]- All Rights Reserved Reading location - IP/workstation name: [email or web address]
--- NOTE | 2018-09-04 10:20 | RADIOLOGY REPORT (SQ) ---
EXAM DESCRIPTION: CT CERVICAL SPINE WITHOUT COMPLETED DATE/TIME: 09/04/2018 10:01 am REASON FOR STUDY: weakness and numbness with falls COMPARISON: CT brain 09/04/2018, 10/21/2016 Cervical spine plain films 12/27/2013 TECHNIQUE: Axial images acquired through the cervical spine without intravenous contrast. Images re viewed with lung, soft tissue and bone windows. Reconstructed coronal and sagittal MPR images review ed. Images stored on PACS. All CT scanners at this facility use dose modulation, iterative reconstruction, and/or weight based d osing when appropriate to reduce radiation dose to as low as reasonably achievable (ALARA). [facility]: Dose Right [facility]: CareDose [facility]: Dose Right [facility]: Teradose 4D [facility]: EXTRABANCA RADIATION DOSE: CT Rad equipment meets quality standard of care and radiation dose reduction techniq ues were employed. CTDIvol: 25.0 mGy. DLP: 508 mGy-cm. mGy. LIMITATIONS: None. FINDINGS: ALIGNMENT: Anatomic. MINERALIZATION: Normal. VERTEBRAL BODIES: No fractures or dislocation. DISCS: No significant central stenosis. Mild left foraminal narrowing at C3-4 and C4-5 from facet an d uncovertebral hypertrophy. FACETS, LATERAL MASSES, POSTERIOR ELEMENTS: No fractures. No dislocation. No acute findings. HARDWARE: None in the spine. VISUALIZED RIBS: No fractures. LUNG APICES AND SOFT TISSUES: No significant or acute findings. OTHER: No other significant finding. IMPRESSION: NO ACUTE OR SIGNIFICANT FINDINGS IN THE CERVICAL SPINE. TECHNICAL DOCUMENTATION: JOB ID: [id number] Quality ID # [id number]: Final reports with documentation of one or more dose reduction techniques (e.g., Au tomated exposure control, adjustment of the mA and/or kV according to patient size, use of iterative reconstruction technique) 2010 [employer]- All Rights Reserved Reading location - IP/workstation name: [email or web address]
--- NOTE | 2018-09-04 10:22 | RADIOLOGY REPORT (SQ) ---
EXAM DESCRIPTION: SHOULDER LEFT 2 OR MORE VIEWS COMPLETED DATE/TIME: 09/04/2018 9:52 am REASON FOR STUDY: concern for dislocation COMPARISON: CT chest 08/05/2017 NUMBER OF VIEWS: Three views. TECHNIQUE: Internal rotation, external rotation, and Y view images acquired of the left shoulder. LIMITATIONS: None. FINDINGS: MINERALIZATION: Osteopenic BONES: There is a tiny acute avulsion fragment off the superior aspect distal left clavicle at the AC joint marked with an arrow. Scapula clavicle humeral head left upper ribs intact. JOINTS: No glenohumeral dislocation. No acromioclavicular joint widening VISUALIZED LUNGS AND RIBS: No pneumothorax. No rib fracture. SOFT TISSUES: No radiopaque foreign body. OTHER: No other significant finding. IMPRESSION: Suspected tiny acute avulsion fragment off the superior aspect of the left AC joint. No AC joint widening or glenohumeral malalignment. TECHNICAL DOCUMENTATION: JOB ID: [id number] [employer]- All Rights Reserved Reading location - IP/workstation name: [email or web address]
--- NOTE | 2018-09-04 10:32 | ER Document Report ---
ED General - General Chief Complaint: Shoulder Injury Stated Complaint: FALL/SHOULDER PAIN Time Seen by Provider: 09/04/18 09:20 TRAVEL OUTSIDE OF THE [place] IN LAST 30 DAYS: No - HPI Notes: Patient is a 68-year-old male with an extensive cardiac history, COPD, and type 2 diabetes who presents to the ED complaining of left shoulder pain after having 2 falls yesterday. Patient states that he has a history of recurrent falls due to chronic weakness more so in his right leg. Patient states that his first fall was when he was playing with his grandkids and lost his balance. The second occurred when he bumped his right foot off of an object and he could not "recover" which is not uncommon for him. Patient states that he did not hit his head or lose consciousness. Patient states he does have chronic joint pains as well. Patient states that most of his pain is in his back left shoulder as well as to the left trapezius muscle. Patient states that his shoulder primarily hurts when he tries to flex or lift up his arm. He has not noticed any bruising otherwise. Denies drug allergies. No other concerns or complaints. Patient is on Plavix. Denies any headache, fever, head injury, acute neck pain, changes in vision/speech/mentation/hearing, URI, sore throat, chest pain, palpitations, syncope, cough, shortness of breath, wheeze, dyspnea, abdominal pain, nausea/vomiting/diarrhea, urinary retention, dysuria, hematuria, loss of control of bowel or bladder, numbness/tingling, saddle anesthesia, muscle paralysis, or rash. - Related Data Allergies/Adverse Reactions: No Known Allergies Allergy (Verified 09/04/18 09:11) Past Medical History - Social History Smoking Status: Never Smoker Chew tobacco use (# tins/day): Yes Frequency of alcohol use: None Drug Abuse: None Family History: Reviewed & Not Pertinent Patient has suicidal ideation: No Patient has homicidal ideation: No - Past Medical History Cardiac Medical History: Reports: Hx Congestive Heart Failure, Hx Coronary Artery Disease, Hx Heart Attack - x 7 LAST IN OCT 2014, Hx Hypercholesterolemia, Hx Hypertension Pulmonary Medical History: Reports: Hx COPD Denies: Hx Asthma Neurological Medical History: Denies: Hx Cerebrovascular Accident, Hx Seizures Endocrine Medical History: Reports: Hx Diabetes Mellitus Type 2 Renal/ Medical History: Denies: Hx Peritoneal Dialysis GI Medical History: Reports: Hx Hiatal Hernia. Denies: Hx Hepatitis, Hx Ulcer Psychiatric Medical History: Reports: Hx Depression Infectious Medical History: Denies: Hx Hepatitis Past Surgical History: Reports: Hx Appendectomy, Hx Cardiac Catheterization - 3- 4 stents, Hx Cardiac Surgery - trip bypass, Hx Open Heart Surgery - TRIPLE BYPASS STENT OCT. Denies: Hx Pacemaker - Immunizations Hx Diphtheria, Pertussis, Tetanus Vaccination: Yes Hx Pneumococcal Vaccination: 08/12/12 Review of Systems - Review of Systems -: Yes All other systems reviewed and negative Physical Exam - Vital signs Vitals: Temp Pulse Resp BP Pulse Ox 97.5 F 59 L 20 143/83 H 97 09/04/18 09:15 09/04/18 09:15 09/04/18 09:15 09/04/18 09:15 09/04/18 09:15 - Notes Notes: PHYSICAL EXAMINATION: GENERAL: Well-appearing, well-nourished and in no acute distress. A&Ox4. Answers questions appropriately. HEAD: Atraumatic, normocephalic. Non-tender. No castillo sign EYES: Pupils equal round and reactive to light, extraocular movements intact, sclera anicteric, conjunctiva are normal. No raccoon eyes/entrapment ENT: EAC clear b/l. TM's intact b/l without erythema, fluid, or perforation. Nares patent and without discharge. oropharynx clear without exudates. No tonsilar hypertrophy or erythema. Moist mucous membranes. No sinus tenderness. No hemotympanum/CSF discharge. NECK: Normal range of motion, supple without lymphadenopathy. No rigidity. No midline tenderness. NEXUS negative. + tenderness left trapezius mm. Correlates with pain described in addition to shoulder (below). Chest: No flail chest. equal rise/fall. Non-tender LUNGS: Breath sounds clear to auscultation bilaterally and equal. No wheezes rales or rhonchi. HEART: Regular rate and rhythm without murmurs, rubs, gallops. ABDOMEN: Soft, nontender, nondistended abdomen. No guarding, no rebound. No masses appreciated. Normal bowel sounds present. No CVA tenderness bilaterally. Musculoskeletal: Lt shoulder: LROM to passive/active due to discomfort at the posterior shoulder. Mild tenderness to palpation to the AC joint and posterior shoulder. Pain primarily reproduced with movement of the extremity. No obvious erythema, swelling, deformity, or ecchymosis. N/V intact distal. Ext's otherwise b/l: FROM to passive/active. Strength 5+/5. No deficits noted. No bony tenderness of extremities. Back: FROM to passive/active. Strength 5+/5. No vertebral point tenderness, stepoffs, or deformities. No other bony tenderness or ecchymosis. Extremities: No cyanosis, clubbing, or edema b/l. Peripheral pulses 2+. Capillary refill less than 2 seconds. NEUROLOGICAL: NIH unremarkable (aside from testing of the Left shoulder). GCS 15. Cranial nerves grossly intact. Normal speech, normal gait. Normal sensory, motor exams. Reflexes 2+ b/l. HARJEET's negative. PSYCH: Normal mood, normal affect. SKIN: Warm, Dry, normal turgor, no rashes or lesions noted. Course - Re-evaluation Re-evalutation: 09/04/18 11:50 Patient is an afebrile, well-hydrated, 68-year-old male who presents to the ED with a "tiny" avulsion fracture to the left shoulder AC. Vitals are acceptable without any significant tachycardia, tachypnea, or hypoxia. PE is otherwise unremarkable for any focal neurological deficits, neurovascular compromise, obvious tendon/ligament rupture, open fracture, septic joint. NIH unremarkable, GCS 15, cranial nerves grossly intact. CT scan of the head, neck, and x-ray of the left shoulder were ordered upon arrival at triage. Sling given today. Pt given toradol and tylenol. Patient is nontoxic-appearing. No other labs or imaging warranted at this time based on H&P. Conservative measures otherwise for symptoms. Recheck with your PCM in 3-5 days. Call orthopedics this week to schedule an appointment for further evaluation and management. Return to the ED with any worsening/concerning symptoms otherwise as reviewed in discharge. Patient is in agreement. - Vital Signs Vital signs: Temp Pulse Resp BP Pulse Ox 97.5 F 59 L 20 143/83 H 97 09/04/18 09:15 09/04/18 09:15 09/04/18 09:15 09/04/18 09:15 09/04/18 09:15 - Laboratory Result Diagrams: 09/04/18 09:40 09/04/18 09:40 Laboratory results interpreted by me: 09/04/18 09:40 Eosinophils % 8.3 H Discharge - Discharge Clinical Impression: Avulsion fracture Shoulder pain, left Qualifiers: Chronicity: acute Qualified Code(s): M25.512 - Pain in left shoulder Condition: Stable Disposition: HOME, SELF-CARE Instructions: Sling as Treatment ([facility]) Additional Instructions: Rest, Ice, Compression, Elevation Use sling as directed Tylenol/ibuprofen as needed F/u with your PCP in 3-5 days for a recheck Call orthopedics this week to schedule an appointment for further evaluation and management Return to the ED with any worsening symptoms and/or development of fever, headache, chest pain, palpitations, syncope, shortness of breath, trouble breathing, abdominal pain, n/v/d, muscle weakness/paralysis, numbness/tingling, swelling, redness, or other worsening symptoms that are concerning to you. Prescriptions: Acetaminophen 500 mg PO TID #15 tablet Forms: Elevated Blood Pressure Referrals: KEITH GREEN MD [Primary Care Provider] - Follow up in 3-5 days [facility] [Provider Group] - Follow up in 3-5 days
[2018-09-04] MEDS ORDERED: ACETAMINOPHEN 325 MG TABLET PO ONE (11:52)
[2018-09-04 13:07] VITALS: BP 162/75
== END 2018-09-04 13:08 | disposition home or self-care (01) ==
LOC: ER 09:09
DX: M25.512 Pain in left shoulder (principal); W19.XXXA Unspecified fall, initial encounter; J44.9 Chronic obstructive pulmonary disease, unspecified; E11.9 Type 2 diabetes mellitus without complications; I11.0 Hypertensive heart disease with heart failure; I50.9 Heart failure, unspecified; I25.10 Atherosclerotic heart disease of native coronary artery without angina pectoris; M62.81 Muscle weakness (generalized); Z91.81 History of falling; E78.00 Pure hypercholesterolemia, unspecified; I25.2 Old myocardial infarction
CPT/HCPCS: 99284; 96374; 36415; 85025; 83036; 73030; 70450; 72125; L3650 ×2; J1885

== ENCOUNTER 2019-01-30 07:23 | Observation (INO) | payer OTHER, MEDICARE ==
[2019-01-30] MEDS ORDERED: ASPIRIN 81 MG TABLET, CHEWABLE PO ONE (08:20)
--- NOTE | 2019-01-30 09:21 | RADIOLOGY REPORT (SQ) ---
EXAM DESCRIPTION: CHEST SINGLE VIEW COMPLETED DATE/TIME: 01/30/2019 8:30 am REASON FOR STUDY: chest pain COMPARISON: 08/05/2017 EXAM PARAMETERS: NUMBER OF VIEWS: One view. TECHNIQUE: Single frontal radiographic view of the chest acquired. RADIATION DOSE: NA LIMITATIONS: None. FINDINGS: LUNGS AND PLEURA: No opacities, masses or pneumothorax. No pleural effusion. MEDIASTINUM AND HILAR STRUCTURES: No masses. Contour normal. HEART AND VASCULAR STRUCTURES: Heart normal in size. Normal vasculature. BONES: No acute findings. HARDWARE: Prior anterior median sternotomy. OTHER: No other significant finding. IMPRESSION: 1. No significant interval changes since the prior examination dated 08/05/2017. No ac nikolay finding. TECHNICAL DOCUMENTATION: JOB ID: [id number]- All Rights Reserved Reading location - IP/workstation name: [email or web address]
--- NOTE | 2019-01-30 09:22 | ER Document Report ---
ED Medical Screen (RME) - General Chief Complaint: Chest Pain Stated Complaint: CHEST PAIN Time Seen by Provider: 01/30/19 09:14 Primary Care Provider: KEITH GREEN MD [Primary Care Provider] - Follow up as needed Mode of Arrival: Ambulatory Information source: Patient TRAVEL OUTSIDE OF THE [place] IN LAST 30 DAYS: No - HPI Patient complains to provider of: MALLORY Notes: 01/30/19 09:21 Patient here with complaints of chest pain and shortness of breath that started last evening. Patient with an extensive past medical history including COPD and heart disease. Exam No distress, nontoxic-appearing. Lungs clear and equal throughout. Heart sounds normal. Plan CBC, CMP, CPK, CK-MB, troponin, EKG, chest x-ray, aspirin. An initial examination was made on the patient as part of the triage process, and it was determined a more comprehensive evaluation was necessary. Initial labs were ordered and patient was transferred to another provider in the ED who assumed care and finished evaluation and plan. - Related Data Allergies/Adverse Reactions: No Known Allergies Allergy (Verified 01/30/19 07:24) Past Medical History - Past Medical History Cardiac Medical History: Reports: Hx Congestive Heart Failure, Hx Coronary Artery Disease, Hx Heart Attack - x 7 LAST IN OCT 2014, Hx Hypercholesterolemia, Hx Hypertension Pulmonary Medical History: Reports: Hx COPD Denies: Hx Asthma Neurological Medical History: Denies: Hx Cerebrovascular Accident, Hx Seizures Endocrine Medical History: Reports: Hx Diabetes Mellitus Type 2 Renal/ Medical History: Denies: Hx Peritoneal Dialysis GI Medical History: Reports: Hx Hiatal Hernia. Denies: Hx Hepatitis, Hx Ulcer Psychiatric Medical History: Reports: Hx Depression Infectious Medical History: Denies: Hx Hepatitis Past Surgical History: Reports: Hx Appendectomy, Hx Cardiac Catheterization - 3- 4 stents, Hx Cardiac Surgery - trip bypass, Hx Open Heart Surgery - TRIPLE BYPASS STENT OCT. Denies: Hx Pacemaker - Immunizations Hx Diphtheria, Pertussis, Tetanus Vaccination: Yes History of Influenza Vaccine for 06/2017 - 11/2017 Season: Yes Influenza Administration Date for 06/2017 - 11/2017 Season: 06/12/17 Physical Exam - Vital signs Vitals: Temp Pulse Resp BP Pulse Ox 97.8 F 58 L 16 157/76 H 97 01/30/19 07:37 01/30/19 07:37 01/30/19 07:37 01/30/19 07:37 01/30/19 07:37 Course - Vital Signs Vital signs: Temp Pulse Resp BP Pulse Ox 97.8 F 58 L 16 157/76 H 97 01/30/19 07:37 01/30/19 07:37 01/30/19 07:37 01/30/19 07:37 01/30/19 07:37 Doctor's Discharge - Discharge Referrals: KEITH GREEN MD [Primary Care Provider] - Follow up as needed
[2019-01-30 09:50] LABS: ABSOLUTE BASOPHILS # (AUTO) 0.1 10^3/uL (0.0-0.2); ABSOLUTE EOSINOPHILS # (AUTO) 0.6 10^3/uL (0.0-0.6); ABSOLUTE LYMPHOCYTES (AUTO) 2.5 10^3/uL (0.5-4.7); ABSOLUTE NEUT (AUTO) 6.1 10^3/uL (1.7-8.2); BASOPHILS % (AUTO) 1.3 % (0-2); EOSINOPHILS % (AUTO) 5.7 % (0-6); HEMATOCRIT 47.5 % (37.9-51.0); HEMOGLOBIN 15.7 g/dL (13.5-17.0); LYMPHOCYTES % (AUTO) 24.1 % (13-45); MEAN CORPUSCULAR HEMOGLOBIN 28.6 pg (27.0-33.4); MEAN CORPUSCULAR VOLUME 87 fl (80-97); MONOCYTES % (AUTO) 10.1 % (3-13); RED BLOOD COUNT 5.48 10^6/uL (4.35-5.55); RED CELL DISTRIBUTION WIDTH 14.1 % (11.5-14.0); SEGMENTED NEUTROPHILS % (AUTO) 58.8 % (42-78); TOTAL CELLS COUNTED % (AUTO) 100 %; WHITE BLOOD COUNT 10.3 10^3/uL (4.0-10.5)
--- NOTE | 2019-01-30 10:10 | ER Document Report ---
ED General - General Chief Complaint: Chest Pain Stated Complaint: CHEST PAIN Time Seen by Provider: 01/30/19 09:14 Primary Care Provider: KEITH GREEN MD [ACTIVE STAFF] - Follow up as needed Mode of Arrival: Ambulatory Notes: Patient is a 68-year-old male with past medical history as recorded including 4 cardiac stents, 2 strokes, heart failure, "10" heart attacks, diabetes, high blood pressure, high cholesterol, who presents today stating last night he has had some substernal nonradiating chest discomfort. He denies any aggravating or relieving factors. No exertional symptoms. Nausea without vomiting. No calf pain or recent trips or travel. Patient states some mild increased edema over the last 2 days bilaterally. Patient also states daily diarrhea around 3 bouts per day for about a month. He also states some epigastric and right upper quadrant pain. He denies any radiation. He denies any association with food. No recent antibiotics, trips or travel. Patient's radiology administrator is Dr. Mayer at [place]. Last cardiac catheterization was around 3 years ago when he had a stent placed according to patient's report. TRAVEL OUTSIDE OF THE [place] IN LAST 30 DAYS: No - Related Data Allergies/Adverse Reactions: No Known Allergies Allergy (Verified 01/30/19 07:24) Past Medical History - General Information source: Patient - Social History Smoking Status: Former Smoker Family History: Reviewed & Not Pertinent Patient has suicidal ideation: No Patient has homicidal ideation: No - Past Medical History Cardiac Medical History: Reports: Hx Congestive Heart Failure, Hx Coronary Artery Disease, Hx Heart Attack - x 7 LAST IN OCT 2014, Hx Hypercholesterolemia, Hx Hypertension Pulmonary Medical History: Reports: Hx COPD Denies: Hx Asthma Neurological Medical History: Denies: Hx Cerebrovascular Accident, Hx Seizures Endocrine Medical History: Reports: Hx Diabetes Mellitus Type 2 Renal/ Medical History: Denies: Hx Peritoneal Dialysis GI Medical History: Reports: Hx Hiatal Hernia. Denies: Hx Hepatitis, Hx Ulcer Psychiatric Medical History: Reports: Hx Depression Infectious Medical History: Denies: Hx Hepatitis Past Surgical History: Reports: Hx Appendectomy, Hx Cardiac Catheterization - 3- 4 stents, Hx Cardiac Surgery - trip bypass, Hx Open Heart Surgery - TRIPLE BYPAS S STENT OCT. Denies: Hx Pacemaker - Immunizations Hx Diphtheria, Pertussis, Tetanus Vaccination: Yes Hx Pneumococcal Vaccination: 08/12/12 Physical Exam - Vital signs Vitals: Temp Pulse Resp BP Pulse Ox 97.8 F 58 L 16 157/76 H 97 01/30/19 07:37 01/30/19 07:37 01/30/19 07:37 01/30/19 07:37 01/30/19 07:37 Course - Re-evaluation Re-evalutation: Given the history and physical examination, with tenderness to the right upper quadrant without rebound or guarding, with diarrhea, with some substernal discomfort yesterday and today, we will obtain a cardiac panel, liver panel, l ipase, stool studies, and a CT scan of the chest abdomen and pelvis. I would like to evaluate for the possibility of ACS, PE, dissection, pneumonia, gallbladder pathology, diverticulitis, or other acute process. 01/30/19 10:08 EKG shows a heart of 57, normal sinus rhythm, normal axis, no obvious ST elevation or depression. Flattened T waves in leads I, and aVL previous EKG shows no obvious appreciable change. 01/30/19 10:40 Cardiac panel and liver panel as recorded. Awaiting lipase. Currently chest pain-free. 01/30/19 12:40 CT scan of the chest abdomen and pelvis as recorded. Normal liver panel and lipase. Normal white blood cell count. Patient is currently pain-free. Patient will be admitted to the hospitalist service for further evaluation with cardiology consultation. - Vital Signs Vital signs: Temp Pulse Resp BP Pulse Ox 97.8 F 58 L 16 168/81 H 99 01/30/19 07:37 01/30/19 07:37 01/30/19 09:54 01/30/19 09:54 01/30/19 09:54 - Laboratory Result Diagrams: 01/30/19 09:40 01/30/19 09:40 Laboratory results interpreted by me: 01/30/19 01/30/19 09:40 09:40 RDW 14.1 H Potassium 5.2 H Discharge - Discharge Clinical Impression: Epigastric pain, Diarrhea Chest pain Qualifiers: Chest pain type: precordial pain Qualified Code(s): R07.2 - Precordial pain Condition: Fair Disposition: ADMITTED OBSERVATION Admitting Provider: Dawson (Hospitalist) Unit Admitted: Telemetry Referrals: KEITH GREEN MD [ACTIVE STAFF] - Follow up as needed
[2019-01-30 10:13] LABS: ALANINE AMINOTRANSFERASE 40 U/L (21-72); ALBUMIN 4.3 g/dL (3.5-5.0); ALKALINE PHOSPHATASE 96 U/L (38-126); ANION GAP 8 (5-19); ASPARTATE AMINO TRANSFERASE 22 U/L (17-59); BILIRUBIN,DIRECT 0.2 mg/dL (0.0-0.4); BILIRUBIN,TOTAL 0.5 mg/dL (0.2-1.3); BLOOD UREA NITROGEN 14 mg/dL (7-20); CALCIUM 9.6 mg/dL (8.4-10.2); CARBON DIOXIDE 27 mmol/L (22-30); CHLORIDE 107 mmol/L (98-107); CREATINE KINASE 86 U/L (55-170); GLUCOSE 107 mg/dL (75-110); POTASSIUM 5.2 mmol/L (3.6-5.0); SODIUM 142.3 mmol/L (137-145); TOTAL PROTEIN 7.4 g/dL (6.3-8.2)
[2019-01-30 10:19] LABS: PLATELET COUNT 184 10^3/uL (150-450)
[2019-01-30 10:25] LABS: CREATINE KINASE MB 1.12 ng/mL (<4.55)
[2019-01-30 10:26] LABS: TROPONIN I < 0.012 ng/mL
[2019-01-30 10:42] LABS: LIPASE 75.1 U/L (23-300)
--- NOTE | 2019-01-30 12:14 | RADIOLOGY REPORT (SQ) ---
EXAM DESCRIPTION: CTA CHEST COMPLETED DATE/TIME: 01/30/2019 11:19 am REASON FOR STUDY: 8; CP with sob COMPARISON: None. TECHNIQUE: CT scan of the chest performed using helical scanning technique with dynamic intravenous contrast injection. Images reviewed with lung, soft tissue and bone windows. Reconstructed coronal and sagittal MPR images reviewed. Additional 3 dimensional post-processing performed to develop Maximal Intensity Projection images (MT P). All images stored on PACS. All CT scanners at this facility use dose modulation, iterative reconstruction, and/or weight based d osing when appropriate to reduce radiation dose to as low as reasonably achievable (ALARA). [facility]: Dose Right [facility]: CareDose [facility]: Dose Right [facility]: Teradose 4D [facility]: [place] CONTRAST TYPE AND DOSE: contrast/concentration: Isovue 350.00 mg/ml; Total Contrast Delivered: 80.0 ml; Total Saline Delivered: 90.0 ml Contrast bolus optimized for the pulmonary arteries. Not diagnostic for the aorta. RENAL FUNCTION: BUN 14 creatinine 0.88 RADIATION DOSE: CT Rad equipment meets quality standard of care and radiation dose reduction techniq ues were employed. CTDIvol: 24.8 - 36.3 mGy. DLP: 4616 mGy-cm. . LIMITATIONS: None. FINDINGS: LUNGS AND PLEURA: No masses, infiltrates, or pneumothorax. No pleural effusions or pleura l calcifications. AORTA AND GREAT VESSELS: No aneurysm. Contrast bolus not optimized for the aorta. HEART: No pericardial effusion. Prior CABG. PULMONARY ARTERIES: No emboli visualized in the main pulmonary arteries or the segmental branches. HILAR AND MEDIASTINAL STRUCTURES: There are small nonspecific mediastinal nodes. HARDWARE: Sternotomy wires. UPPER ABDOMEN: See separate report of the CT of the abdomen. THYROID AND OTHER SOFT TISSUES: No significant or acute abnormality. BONES: No acute or significant finding. 3D MIPS: Confirm above findings. OTHER: No other significant finding. IMPRESSION: NORMAL CTA OF THE CHEST. NO PULMONARY EMBOLI. COMMENT: Quality ID # [id number]: Final reports with documentation of one or more dose reduction techniques (e.g., Automated exposure control, adjustment of the mA and/or kV according to patient size, use of iterative reconstruction technique) TECHNICAL DOCUMENTATION: JOB ID: [id number] [employer]- All Rights Reserved Reading location - IP/workstation name: [email or web address]
--- NOTE | 2019-01-30 12:20 | RADIOLOGY REPORT (SQ) ---
EXAM DESCRIPTION: CT ABD/PELVIS WITH IV ONLY COMPLETED DATE/TIME: 01/30/2019 11:26 am REASON FOR STUDY: 8; epigastric and RUQ pain with diarrhea COMPARISON: None. TECHNIQUE: CT scan of the abdomen and pelvis performed using helical scanning technique with dynamic intravenous contrast injection. No oral contrast. Images reviewed with lung, soft tissue, and bone windows. Reconstructed coronal and sagittal MPR images reviewed. Delayed images for evaluation of the urinary system also acquired. All images stored on PACS. All CT scanners at this facility use dose modulation, iterative reconstruction, and/or weight based d osing when appropriate to reduce radiation dose to as low as reasonably achievable (ALARA). [facility]: Dose Right [facility]: CareDose [facility]: Dose Right [facility]: Teradose 4D [facility]: Atlas5D CONTRAST TYPE AND DOSE: 80 mL Omnipaque 350- low osmolar. RENAL FUNCTION: BUN 14 creatinine 0.88 RADIATION DOSE: . LIMITATIONS: None. FINDINGS: LOWER CHEST: See separate report of the CT of the chest. LIVER: Normal size. No masses. No dilated ducts. SPLEEN: Normal size. No focal lesions. PANCREAS: No masses. No significant calcifications. No adjacent inflammation or peripancreatic fluid collections. Pancreatic duct not dilated. GALLBLADDER: No identified stones by CT criteria. No inflammatory changes to suggest cholecystitis. ADRENAL GLANDS: No significant masses or asymmetry. RIGHT KIDNEY AND URETER: No solid masses. No significant calcifications. No hydronephrosis or hyd roureter. LEFT KIDNEY AND URETER: No solid masses. No significant calcifications. No hydronephrosis or hydr oureter. AORTA AND VESSELS: No aneurysm. No dissection. Renal arteries, SMA, celiac without stenosis. RETROPERITONEUM: No retroperitoneal adenopathy, hemorrhage or masses. BOWEL AND PERITONEAL CAVITY: No masses or inflammatory changes. No free fluid or peritoneal masses. APPENDIX: Surgically absent. PELVIS: No mass. No free fluid. Normal bladder. ABDOMINAL WALL: No masses. No hernias. BONES: No significant or acute findings. OTHER: No other significant finding. IMPRESSION: NO SIGNIFICANT OR ACUTE FINDING IN THE ABDOMEN OR PELVIS ON CT SCAN WITH IV CONTRAST. TECHNICAL DOCUMENTATION: JOB ID: [id number] Quality ID # [id number]: Final reports with documentation of one or more dose reduction techniques (e.g., Au tomated exposure control, adjustment of the mA and/or kV according to patient size, use of iterative reconstruction technique) 2010 [email or web address] All Rights Reserved Reading location - IP/workstation name: [email or web address]
[2019-01-30] MEDS ORDERED: ONDANSETRON HCL INJ/PF 4 MG/2 ML SDV IV PRN (14:46)
[2019-01-30] MEDS ORDERED: PROMETHAZINE HCL INJ 25 MG/1 ML VIAL IV PRN (14:46)
[2019-01-30] MEDS ORDERED: MAG HYDROX/AL HYDROX/SIMETH SUSP 30 ML UDCUP PO PRN (14:46)
[2019-01-30] MEDS ORDERED: ACETAMINOPHEN 325 MG TABLET PO PRN (14:46)
[2019-01-30] MEDS ORDERED: ALBUTEROL SULFATE 0.083% NEB 2.5 MG/3 ML AMPUL NEB PRN (14:46)
[2019-01-30] MEDS ORDERED: NITROGLYCERIN 0.4 MG/TAB 25 TAB/BOTTLE SL PRN (14:51)
[2019-01-30] MEDS ORDERED: DEXTROSE 40% GEL 15 GM TUBE PO PRN ×2 (14:53)
[2019-01-30] MEDS ORDERED: DEXTROSE 50%-WATER 25 GM/50 ML DISP.SYRIN IV PRN ×2 (14:53)
[2019-01-30] MEDS ORDERED: GLUCAGON,HUMAN RECOMB 1 MG INJ IM PRN (14:53)
[2019-01-30] MEDS ORDERED: ALPRAZOLAM 0.5 MG TABLET PO PRN (15:34)
[2019-01-30] MEDS ORDERED: INSULIN LISPRO 100 UNIT/ML 3 ML VIAL SUBCUT SCH (16:00)
[2019-01-30 17:36] VITALS: BP 175/77
[2019-01-30] MEDS ORDERED: TICAGRELOR 90 MG TABLET PO SCH (18:00)
[2019-01-30] MEDS ORDERED: BUPROPION HCL 100 MG TABLET PO SCH (18:00)
[2019-01-30] MEDS ORDERED: (PENDING PHARMACY ID) (Prazosin Hcl [Minipress] 2 MG) PO SCH (22:00)
[2019-01-30] MEDS ORDERED: OXCARBAZEPINE 150 MG TABLET PO SCH (22:00)
[2019-01-30] MEDS ORDERED: ATORVASTATIN CALCIUM 80 MG TABLET PO SCH (22:00)
[2019-01-30] MEDS ORDERED: (PENDING PHARMACY ID) (Oxcarbazepine [Trileptal] 300 MG) PO SCH (22:00)
[2019-01-30] MEDS ORDERED: (PENDING PHARMACY ID) (Rosuvastatin Calcium [Crestor] 40 MG) PO SCH (22:00)
[2019-01-30] MEDS ORDERED: HEPARIN SOD (PORCINE) 5,000 UNIT/ML 1 ML SYRINGE SUBCUT SCH (22:00)
[2019-01-31] MEDS ORDERED: PANTOPRAZOLE SODIUM 20 MG TABLET.DR PO SCH (06:00)
[2019-01-31] MEDS ORDERED: LURASIDONE HCL 60 MG TABLET PO SCH (10:00)
[2019-01-31] MEDS ORDERED: ESCITALOPRAM OXALATE 10 MG TABLET PO SCH (10:00)
[2019-01-31] MEDS ORDERED: DOCUSATE SODIUM 100 MG/10 ML UDC PO SCH (10:00)
[2019-01-31] MEDS ORDERED: ASPIRIN 81 MG TABLET, ENT COATED PO SCH (10:00)
[2019-01-31] MEDS ORDERED: (PENDING PHARMACY ID) (Bupropion Hcl [Bupropion Hcl Sr] 200 MG) PO SCH (10:00)
[2019-01-31] MEDS ORDERED: ISOSORBIDE MONONITRATE 60 MG TAB.ER.24H PO SCH (10:00)
[2019-01-31] MEDS ORDERED: LOSARTAN POTASSIUM 50 MG TABLET PO SCH (10:00)
--- NOTE | 2019-01-31 10:59 | EKG REPORT ---
SEVERITY:- BORDERLINE ECG - SINUS RHYTHM BORDERLINE IVCD WITH LAD : Confirmed by: Cash Dubon 31-Jan-2019 10:58:32
--- NOTE | 2019-02-01 22:17 | H&P/Discharge Summary ---
Discharge Summary Admission Date/PCP: 01/30/19 13:11 NASIR SOUSA MD Discharge Date: 01/30/19 Resuscitation Status: Full Code - Discharge Diagnosis (1) Chest pain Is this a current diagnosis for this admission?: Yes (2) Coronary artery disease Is this a current diagnosis for this admission?: Yes (3) Diabetes Is this a current diagnosis for this admission?: Yes (4) Diarrhea Is this a current diagnosis for this admission?: Yes (5) Dyslipidemia Is this a current diagnosis for this admission?: Yes (6) PTSD (post-traumatic stress disorder) Is this a current diagnosis for this admission?: Yes Home Medications: Alprazolam [Xanax] 1 mg PO Q12 01/30/19 Aspirin [Ecotrin 81 mg EC Tablet] 81 mg PO DAILY 01/30/19 Bupropion HCl [Bupropion HCl Sr] 200 mg PO DAILY 01/30/19 Escitalopram Oxalate [Lexapro] 20 mg PO DAILY 01/30/19 Isosorbide Mononitrate [Imdur 60 mg Tablet.er] 60 mg PO DAILY 01/30/19 Losartan Potassium [Cozaar 50 mg Tablet] 50 mg PO DAILY 01/30/19 Lurasidone HCl [Latuda 60 mg Tablet] 60 mg PO DAILY 01/30/19 Metformin HCl [Glucophage 500 mg Tablet] 500 mg PO BID 01/30/19 Nitroglycerin [Nitrostat 0.4 mg (1/150 Gr) Tabs 25/Bottle] 0.4 mg PO Q5MP PRN 01/30/19 Oxcarbazepine [Trileptal] 300 mg PO QHS 01/30/19 Prazosin HCl [Minipress] 2 mg PO QHS 01/30/19 Rosuvastatin Calcium [Crestor] 40 mg PO QHS 01/30/19 Ticagrelor [Brilinta 90 mg Tablet] 90 mg PO BID 01/30/19 Allergies/Adverse Reactions: No Known Allergies Allergy (Verified 01/30/19 07:24) History of Present Illness Admission Date/PCP: 01/30/19 13:11 NASIR SOUSA MD Patient complains of: chest pain History of Present Illness: YOUNG POPE is a 68 year old male with past medical history as recorded including multiple heart attacks s/p cath with stent placement, 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 Patient presented to the emergency department with a complaint of sudden onset chest pain with associated nausea this morning. He reports that the pain is intermittent, non-radiating, and denies alleviating or aggravating factors. He also complains of multiple loose stools daily x 1 month. He denies associated abdominal pain. Evaluation in the emergency department revealed paced rhythm, benign CXR, negative CT ABD/Pelvis, nml CTA Chest, and unremarkable labratory evaluation including negative troponins x 2. He was referred to the hospitalist service for admission and chest pain rule out. The patient was ordered standard care-set of telemetry monitoring, trending troponins, risk stratification with AM lab work, and Cardiolite stress testing. Shortly after meeting with the patient, he reported that his symptoms had resolved and that he desired to leave AGAINST MEDICAL ADVICE. Past Medical History Cardiac Medical History: Reports: Congestive Heart Failure, Coronary Artery Disease, Myocardial Infarction - multiple, Hyperlipidema, Hypertension Pulmonary Medical History: Reports: Chronic Obstructive Pulmonary Disease (COPD) Denies: Asthma Neurological Medical History: Denies: Seizures Endocrine Medical History: Reports: Diabetes Mellitus Type 2 Renal/ Medical History: Denies: Chronic Kidney Disease GI Medical History: Reports: Hiatal Hernia Denies: Hepatitis Musculoskeltal Medical History: Reports: Arthritis Psychiatric Medical History: Reports: Depression, General Anxiety Disorder, Post Traumatic Stress Disorder Hematology: Denies: Anemia, Sickle Cell Disease Infectious Medical History: Reports: None Past Surgical History Past Surgical History: Reports: Appendectomy, Cardiac Catheterization - (+) stents Denies: Pacemaker Social History Information Source: Patient Lives with: Spouse/Significant other Smoking Status: Former Smoker Frequency of Alcohol Use: None Hx Recreational Drug Use: No Drugs: Marijuana Hx Prescription Drug Abuse: No - Advance Directive Resuscitation Status: Full Code Family History Family History: Reviewed & Not Pertinent Parental Family History Reviewed: Yes Children Family History Reviewed: Yes Sibling(s) Family History Reviewed.: Yes Review of Systems Constitutional: ABSENT: chills, fever(s), headache(s), weight gain, weight loss Eyes: ABSENT: visual disturbances Ears: ABSENT: hearing changes Cardiovascular: PRESENT: chest pain. ABSENT: dyspnea on exertion, edema, orthropnea, palpitations Respiratory: ABSENT: cough, hemoptysis Gastrointestinal: PRESENT: diarrhea. ABSENT: abdominal pain, constipation, hematemesis, hematochezia, nausea, vomiting Genitourinary: ABSENT: dysuria, hematuria Musculoskeletal: ABSENT: joint swelling Integumentary: ABSENT: rash, wounds Neurological: ABSENT: abnormal gait, abnormal speech, confusion, dizziness, focal weakness, syncope Psychiatric: PRESENT: anxiety. ABSENT: depression, homidical ideation, suicidal ideation Endocrine: ABSENT: cold intolerance, heat intolerance, polydipsia, polyuria Hematologic/Lymphatic: ABSENT: easy bleeding, easy bruising Physical Exam Vital Signs: Temp Pulse Resp BP Pulse Ox 97.8 F 58 L 11 L 175/77 H 97 01/30/19 07:37 01/30/19 07:37 01/30/19 17:20 01/30/19 17:20 01/30/19 17:20 Intake & Output 01/31/19 02/01/19 02/02/19 06:59 06:59 06:59 Weight 90.718 kg General appearance: PRESENT: no acute distress, obese, well-developed, well- nourished Head exam: PRESENT: atraumatic, normocephalic Eye exam: PRESENT: conjunctiva pink, EOMI, PERRLA. ABSENT: scleral icterus Ear exam: PRESENT: normal external ear exam Mouth exam: PRESENT: moist, tongue midline Neck exam: ABSENT: carotid bruit, JVD, lymphadenopathy, thyromegaly Respiratory exam: PRESENT: clear to auscultation [place], symmetrical, unlabored. ABSENT: rales, rhonchi, wheezes Cardiovascular exam: PRESENT: RRR, +S1, +S2. ABSENT: diastolic murmur, rubs, systolic murmur Pulses: PRESENT: normal dorsalis pedis pul Vascular exam: PRESENT: normal capillary refill GI/Abdominal exam: PRESENT: normal bowel sounds, soft. ABSENT: distended, guarding, mass, organolmegaly, rebound, tenderness Rectal exam: PRESENT: deferred Extremities exam: PRESENT: full ROM. ABSENT: calf tenderness, clubbing, pedal edema Neurological exam: PRESENT: alert, awake, oriented to person, oriented to place, oriented to time, oriented to situation, CN II-XII grossly intact. ABSENT: motor sensory deficit Psychiatric exam: PRESENT: anxious, appropriate affect, normal mood. ABSENT: homicidal ideation, suicidal ideation Skin exam: PRESENT: dry, intact, warm. ABSENT: cyanosis, rash Results Laboratory Results: 01/30/19 09:40 01/30/19 09:40 01/30/19 01/30/19 01/30/19 09:40 09:40 15:30 Creatine Kinase 86 CK-MB (CK-2) 1.12 Troponin I < 0.012 < 0.012 Impressions: Chest X-Ray 01/30/19 08:20 IMPRESSION: 1. No significant interval changes since the prior examination dated 08/05/2017. No acute finding. Abdomen/Pelvis CT 01/30/19 10:06 IMPRESSION: NO SIGNIFICANT OR ACUTE FINDING IN THE ABDOMEN OR PELVIS ON CT SCAN WITH IV CONTRAST. Chest/Abdomen CTA 01/30/19 10:06 IMPRESSION: NORMAL CTA OF THE CHEST. NO PULMONARY EMBOLI. Qualifiers - * PATIENT BEING DISCHARGED WITH ANY OF THE FOLLOWING DIAGNOSIS: No Assessment & Plan - Time Time Spent: 30 to 50 Minutes Smoking Education Provided: Over 3 minutes Medications reviewed and adjusted accordingly: Yes Anticipated dischagre: Home Within: within 24 hours - Plan Summary Plan Summary: Patient left AGAINST MEDICAL ADVICE.
== END 2019-01-30 17:59 | disposition left against medical advice (07) ==
LOC: ER 07:23 → INTOOBSV 13:11 → EH 13:11
PROVIDERS: ADMIT Internal Medicine; ATTEND Internal Medicine
DX: R07.9 Chest pain, unspecified (principal); I25.10 Atherosclerotic heart disease of native coronary artery without angina pectoris; E11.9 Type 2 diabetes mellitus without complications; R19.7 Diarrhea, unspecified; E78.5 Hyperlipidemia, unspecified; F43.10 Post-traumatic stress disorder, unspecified; I69.351 Hemiplegia and hemiparesis following cerebral infarction affecting right dominant side; I25.2 Old myocardial infarction; F41.1 Generalized anxiety disorder; E66.9 Obesity, unspecified; R10.13 Epigastric pain; R10.11 Right upper quadrant pain; I11.0 Hypertensive heart disease with heart failure; I50.9 Heart failure, unspecified; R06.02 Shortness of breath; F32.9 Major depressive disorder, single episode, unspecified; Z79.899 Other long term (current) drug therapy; Z79.82 Long term (current) use of aspirin; Z79.84 Long term (current) use of oral hypoglycemic drugs; Z95.5 Presence of coronary angioplasty implant and graft; Z53.21 Procedure and treatment not carried out due to patient leaving prior to being seen by health care provider; Z90.49 Acquired absence of other specified parts of digestive tract; Z87.891 Personal history of nicotine dependence; Z98.890 Other specified postprocedural states; Z79.02 Long term (current) use of antithrombotics/antiplatelets
CPT/HCPCS: 36415; 71045; 71275; 74177; 80053; 82550; 82553; 83690; 84484; 85025; 93005; 93010; 99285; G0378

== ENCOUNTER 2019-06-05 23:13 | Emergency (ER) | payer OTHER, MEDICARE ==
[2019-06-06 00:29] LABS: ABSOLUTE LYMPHOCYTES (AUTO) 0.9 10^3/uL (0.5-4.7); ABSOLUTE MONOCYTES (AUTO) 0.1 10^3/uL (0.1-1.4); ABSOLUTE NEUT (AUTO) 9.3 10^3/uL (1.7-8.2); ALBUMIN 4.2 g/dL (3.5-5.0); ALKALINE PHOSPHATASE 86 U/L (38-126); ANION GAP 13 (5-19); ASPARTATE AMINO TRANSFERASE 26 U/L (17-59); BASOPHILS % (AUTO) 0.3 % (0-2); BILIRUBIN,DIRECT 0.1 mg/dL (0.0-0.4); BILIRUBIN,TOTAL 0.3 mg/dL (0.2-1.3); BLOOD UREA NITROGEN 16 mg/dL (7-20); CALCIUM 9.4 mg/dL (8.4-10.2); CARBON DIOXIDE 24 mmol/L (22-30); CHLORIDE 103 mmol/L (98-107); CREATINE KINASE 101 U/L (55-170); GLUCOSE 384 mg/dL (75-110); HEMATOCRIT 40.1 % (37.9-51.0); HEMOGLOBIN 13.4 g/dL (13.5-17.0); MEAN CORPUSCULAR HEMOGLOBIN 28.6 pg (27.0-33.4); MEAN CORPUSCULAR HGB CONC 33.4 g/dL (32.0-36.0); MEAN CORPUSCULAR VOLUME 86 fl (80-97); MONOCYTES % (AUTO) 1.3 % (3-13); PLATELET COUNT 192 10^3/uL (150-450); POTASSIUM 4.9 mmol/L (3.6-5.0); RED BLOOD COUNT 4.69 10^6/uL (4.35-5.55); RED CELL DISTRIBUTION WIDTH 14.3 % (11.5-14.0); SEGMENTED NEUTROPHILS % (AUTO) 89.4 % (42-78); TOTAL CELLS COUNTED % (AUTO) 100 %; TOTAL PROTEIN 6.6 g/dL (6.3-8.2); WHITE BLOOD COUNT 10.4 10^3/uL (4.0-10.5)
[2019-06-06] MEDS ORDERED: IPRATROPIUM/ALBUTEROL 0.5-2.5 MG/3 ML AMPUL NEB ONE (00:40)
[2019-06-06 00:41] LABS: TROPONIN I < 0.012 ng/mL
[2019-06-06] MEDS ORDERED: LIDOCAINE 1% INJ-PF (10 MG/ML) 30 ML SDV NEB ONE (00:41)
--- NOTE | 2019-06-06 00:44 | ER Document Report ---
ED General - General Chief Complaint: Chest Pain > 30 Stated Complaint: CHEST PAIN Time Seen by Provider: 06/06/19 00:31 Primary Care Provider: SULMA KAPADIA DO [ACTIVE STAFF] - Follow up as needed Notes: Patient is a 69-year-old male that comes to the emergency department for chief complaint of several days of worsening cough, he states he had chills earlier today, he states he has pain in his chest with cough, he also complains of some wheezing and shortness of breath. He is a former smoker with COPD, he is not on oxygen at home. He states he was seen at urgent care approximately 2 days ago, given a shot of steroids and a shot of antibiotics. He states he tried his home nebulizer and did not feel improved so he came in. Past medical history is extensive including multiple MIs, CVA x2 with some right-sided deficits, COPD, CHF, type 2 diabetes, hypertension, PTSD with associated anxiety and depression. Patient states he is compliant with his medications. TRAVEL OUTSIDE OF THE [place] IN LAST 30 DAYS: No - Related Data Allergies/Adverse Reactions: No Known Allergies Allergy (Verified 01/30/19 07:24) Past Medical History - General Information source: Patient - Social History Smoking Status: Former Smoker Chew tobacco use (# tins/day): No Smoking Education Provided: Yes - <3 min Frequency of alcohol use: Occasional Drug Abuse: None Lives with: Family Family History: Reviewed & Not Pertinent Patient has suicidal ideation: No Patient has homicidal ideation: No - Past Medical History Cardiac Medical History: Reports: Hx Congestive Heart Failure, Hx Coronary Artery Disease, Hx Heart Attack - multiple, Hx Hypercholesterolemia, Hx Hypertension Pulmonary Medical History: Reports: Hx COPD Denies: Hx Asthma Neurological Medical History: Denies: Hx Cerebrovascular Accident, Hx Seizures Endocrine Medical History: Reports: Hx Diabetes Mellitus Type 2 Renal/ Medical History: Denies: Hx Peritoneal Dialysis GI Medical History: Reports: Hx Hiatal Hernia. Denies: Hx Hepatitis, Hx Ulcer Musculoskeletal Medical History: Reports Hx Arthritis Psychiatric Medical History: Reports: Hx Depression, Hx Post Traumatic Stress Disorder Infectious Medical History: Denies: Hx Hepatitis Past Surgical History: Reports: Hx Appendectomy, Hx Cardiac Catheterization - (+) stents, Hx Cardiac Surgery - trip bypass, Hx Open Heart Surgery - TRIPLE BYPASS STENT OCT. Denies: Hx Pacemaker - Immunizations Hx Diphtheria, Pertussis, Tetanus Vaccination: Yes Hx Pneumococcal Vaccination: 08/12/12 Review of Systems - Review of Systems Constitutional: See HPI EENT: No symptoms reported Cardiovascular: See HPI Respiratory: See HPI Gastrointestinal: No symptoms reported Genitourinary: No symptoms reported Male Genitourinary: No symptoms reported Musculoskeletal: No symptoms reported Skin: No symptoms reported Hematologic/Lymphatic: No symptoms reported Neurological/Psychological: No symptoms reported Physical Exam - Vital signs Vitals: Temp Pulse Resp BP Pulse Ox 98.1 F 86 22 H 153/68 H 98 06/05/19 23:28 06/05/19 23:28 06/05/19 23:28 06/05/19 23:28 06/05/19 23:28 - Notes Notes: GENERAL: Alert, interacts well. No acute distress. HEAD: Normocephalic, atraumatic. EYES: Pupils equal, round, and reactive to light. Extraocular movements intact. ENT: Oral mucosa moist, tongue midline. Oropharynx unremarkable. Airway patent. Nares patent, no nasal septal hematoma, TM's intact. NECK: Full range of motion. Supple. Trachea midline. LUNGS: Scattered expiratory wheezes, occasional cough, no rales or rhonchi, no tachypnea or respiratory distress. Midline CABG scar. HEART: Regular rate and rhythm. No murmur ABDOMEN: Soft, non-tender. Non-distended. Bowel sounds present in all 4 quadrants. GENITOURINARY: Deferred EXTREMITIES: Moves all 4 extremities spontaneously. No edema, normal radial and dorsalis pedis pulses bilaterally. No cyanosis. BACK: no cervical, thoracic, lumbar midline tenderness. No saddle anesthesia, normal distal neurovascular exam. Moves all extremities in full range of motion. NEUROLOGICAL: Alert and oriented x3. Normal speech. Cranial nerves II through XII grossly intact. PSYCH: Normal affect, normal mood. SKIN: Warm, dry, normal turgor. No rashes or lesions noted. Course - Re-evaluation Re-evalutation: On initial exam patient is wheezing and coughing, no rales, no rhonchi, no hypoxia, no fever. He does not have respiratory distress. He was given lidocai ne for the coughing which worked really well, he was given DuoNeb and after this the wheezing resolved. Given steroids previously via a shot. CBC nonspecific, chemistry unremarkable, troponin is not elevated despite symptoms going on for several days, chest x-ray is actually clear, EKG nonspecific. On reevaluation patient is asymptomatic and well-appearing. Patient states that he felt like he was running a fever earlier, he feels like he is significantly worsening, his presentation is suggestive of a viral upper respiratory infection but because of his worsening symptoms I am concerned pat ient may be developing a secondary pneumonia. Patient ambulates without difficulty or hypoxia. Patient will be started on doxycycline, follow-up very close with primary care, and return if he worsens in any way. Patient states appreciation and satisfaction with this plan. Stable at time of discharge. - Vital Signs Vital signs: Temp Pulse Resp BP Pulse Ox 98.4 F 88 19 117/92 H 95 06/06/19 04:22 06/06/19 04:22 06/06/19 04:22 06/06/19 04:22 06/06/19 04:22 - Laboratory Result Diagrams: 06/05/19 23:50 06/05/19 23:50 Laboratory results interpreted by me: 06/05/19 06/05/19 23:50 23:50 Hgb 13.4 L RDW 14.3 H Lymph % (Auto) 9.0 L [place] % (Auto) 1.3 L Absolute Neuts (auto) 9.3 H Seg Neutrophils % 89.4 H Glucose 384 H - EKG Interpretation by Me Additional EKG results interpreted by me: EKG shows sinus rhythm at a rate of 90, no T wave inversions or ST segment changes in consecutive leads, normal axis. Unfortunately there is some artifact as well. QTC of 490. Borderline right bundle-branch block. Discharge - Discharge Clinical Impression: Productive cough, Chills, Wheezing, Tobacco abuse, Skin lesion Condition: Stable Disposition: HOME, SELF-CARE Additional Instructions: Your evaluation is most consistent with an upper respiratory infection, probably bronchitis. We are treating you because there is some concern he may be de veloping an underlying pneumonia in addition to this based on your worsening symptoms. Take doxycycline as prescribed, use your albuterol/nebulizer, rest. Follow-up close with your primary care provider. Stop smoking. The lesion on your right shoulder area is somewhat concerning, I recommended c lose follow-up with dermatology for biopsy to make sure this is not cancer that could spread. Call the listed referral for the follow-up. Return if you worsen including spiking fevers, difficulty breathing, or any other concerning or worsening symptoms. Prescriptions: Doxycycline Hyclate 100 mg PO BID #14 capsule Referrals: SULMA KAPADIA DO [ACTIVE STAFF] - Follow up as needed
[2019-06-06 01:24] LABS: INTERNATIONAL RATION (INR) 1.02; PROTHROMBIN TIME 13.4 SEC (11.4-15.4)
--- NOTE | 2019-06-06 02:21 | RADIOLOGY REPORT (SQ) ---
EXAM DESCRIPTION: XR CHEST 2 VIEWS COMPLETED DATE/TME: 06/05/2019 00:00 CLINICAL HISTORY: 69 years, Male, chest pain COMPARISON: X-ray chest 01/30/2019 NUMBER OF VIEWS: TECHNIQUE: LIMITATIONS: None. FINDINGS: No evidence of pulmonary infiltrate or pleural effusion. The heart is normal in size. Pulmonary vascularity appears normal. There is tortuosity of the thoracic aorta. There is evidence of prior thoracic surgery. There is no significant change, as compared with the prior x-ray(s). IMPRESSION: No acute finding. copyright 2010 [id number]- All Rights Reserved
[2019-06-06 04:23] VITALS: BP 117/92
--- NOTE | 2019-06-06 11:32 | EKG REPORT ---
SEVERITY:- ABNORMAL ECG - SINUS RHYTHM INCOMPLETE RIGHT BUNDLE BRANCH BLOCK : Confirmed by: Cash Dubon 06-Jun-2019 11:31:08
== END 2019-06-06 04:23 | disposition home or self-care (01) ==
LOC: ER 23:13
DX: R05 Cough (principal); R07.9 Chest pain, unspecified; J44.9 Chronic obstructive pulmonary disease, unspecified; R06.02 Shortness of breath; R68.83 Chills (without fever); L98.9 Disorder of the skin and subcutaneous tissue, unspecified; I10 Essential (primary) hypertension; E11.9 Type 2 diabetes mellitus without complications; Z87.891 Personal history of nicotine dependence
CPT/HCPCS: 93005; 94640 ×2; 99285; 36415; 82553; 82550; 85025; 85610; 80053; 84484; 71046; 93010; J3490; J7620

== ENCOUNTER 2019-07-25 10:22 | Emergency (ER) | payer OTHER, MEDICARE ==
--- NOTE | 2019-07-25 10:33 | ER Document Report ---
ED Medical Screen (RME) - General Chief Complaint: Breathing Difficulty Stated Complaint: TROUBLE BREATHING Time Seen by Provider: 07/25/19 10:25 Primary Care Provider: NASIR SOUSA MD [Primary Care Provider] - Follow up as needed Mode of Arrival: Ambulatory Information source: Patient Notes: 77-year-old male with history of asthma COPD CAD, CHF, diabetes presents to the emergency department with complaints of shortness of breath right-sided chest pain with cough. Reports history of pneumonia feels the same way. Reports productive cough. Reports he had a fever last night, went to urgent care was treated for a sinus infection. He received a shot of something and antibiotics. He reports antibiotics are still at the drugstore. Denies chest pain no compla ints of vomiting or diarrhea. Patient also reports that he lived on [place] for 10 years and something is wrong with his head now. He reports history of stroke, he has known many people that have of cancer. Patient speaking in clear sentences no distress no shortness of breath noted. No peripheral edema noted. I have greeted and performed a rapid initial assessment of this patient. A comprehensive ED assessment and evaluation of the patient, analysis of test results and completion of the medical decision making process will be conducted by additional ED providers. Dictation of this chart was performed using voice recognition software; therefore, there may be some unintended grammatical errors. TRAVEL OUTSIDE OF THE [place] IN LAST 30 DAYS: No - Related Data Allergies/Adverse Reactions: No Known Allergies Allergy (Verified 01/30/19 07:24) Past Medical History - Past Medical History Cardiac Medical History: Reports: Hx Congestive Heart Failure, Hx Coronary Artery Disease, Hx Heart Attack - multiple, Hx Hypercholesterolemia, Hx Hypert ension Pulmonary Medical History: Reports: Hx COPD Denies: Hx Asthma Neurological Medical History: Denies: Hx Cerebrovascular Accident, Hx Seizures Endocrine Medical History: Reports: Hx Diabetes Mellitus Type 2 Renal/ Medical History: Denies: Hx Peritoneal Dialysis GI Medical History: Reports: Hx Hiatal Hernia. Denies: Hx Hepatitis, Hx Ulcer Musculoskeltal Medical History: Reports Hx Arthritis Psychiatric Medical History: Reports: Hx Depression, Hx Post Traumatic Stress Disorder Infectious Medical History: Denies: Hx Hepatitis Past Surgical History: Reports: Hx Appendectomy, Hx Cardiac Catheterization - (+) stents, Hx Cardiac Surgery - trip bypass, Hx Open Heart Surgery - TRIPLE BYPASS STENT FE. Denies: Hx Pacemaker - Immunizations Hx Diphtheria, Pertussis, Tetanus Vaccination: Yes Physical Exam - Vital signs Vitals: Temp Pulse Resp BP Pulse Ox 97.5 F 70 18 144/81 H 99 07/25/19 10:25 07/25/19 10:25 07/25/19 10:25 07/25/19 10:25 07/25/19 10:25 Course - Vital Signs Vital signs: Temp Pulse Resp BP Pulse Ox 97.5 F 70 18 144/81 H 99 07/25/19 10:25 07/25/19 10:25 07/25/19 10:25 07/25/19 10:25 07/25/19 10:25 Doctor's Discharge - Discharge Referrals: NASIR SOUSA MD [Primary Care Provider] - Follow up as needed
--- NOTE | 2019-07-25 11:10 | EKG REPORT ---
SEVERITY:- ABNORMAL ECG - SINUS RHYTHM RIGHT BUNDLE BRANCH BLOCK : Confirmed by: Ashley Sifuentes MD 25-Jul-2019 11:08:59
[2019-07-25 11:16] LABS: ABSOLUTE BASOPHILS # (AUTO) 0.1 10^3/uL (0.0-0.2); ABSOLUTE EOSINOPHILS # (AUTO) 0.3 10^3/uL (0.0-0.6); ABSOLUTE LYMPHOCYTES (AUTO) 1.9 10^3/uL (0.5-4.7); ABSOLUTE MONOCYTES (AUTO) 0.8 10^3/uL (0.1-1.4); ABSOLUTE NEUT (AUTO) 6.3 10^3/uL (1.7-8.2); BASOPHILS % (AUTO) 0.7 % (0-2); EOSINOPHILS % (AUTO) 3.4 % (0-6); HEMATOCRIT 42.5 % (37.9-51.0); HEMOGLOBIN 14.3 g/dL (13.5-17.0); LYMPHOCYTES % (AUTO) 20.6 % (13-45); MEAN CORPUSCULAR HEMOGLOBIN 28.8 pg (27.0-33.4); MEAN CORPUSCULAR HGB CONC 33.6 g/dL (32.0-36.0); MEAN CORPUSCULAR VOLUME 86 fl (80-97); MONOCYTES % (AUTO) 8.4 % (3-13); PLATELET COUNT 184 10^3/uL (150-450); RED BLOOD COUNT 4.96 10^6/uL (4.35-5.55); RED CELL DISTRIBUTION WIDTH 13.9 % (11.5-14.0); SEGMENTED NEUTROPHILS % (AUTO) 66.9 % (42-78); TOTAL CELLS COUNTED % (AUTO) 100 %; WHITE BLOOD COUNT 9.4 10^3/uL (4.0-10.5)
[2019-07-25] MEDS ORDERED: METHYLPREDNISOLONE INJ 125 MG/2 ML SDV IV ONE (11:20)
[2019-07-25] MEDS ORDERED: ALBUTEROL SULFATE 0.083% NEB 2.5 MG/3 ML AMPUL NEB ONE ×2 (11:20→11:21)
[2019-07-25] MEDS ORDERED: IPRATROPIUM/ALBUTEROL 0.5-2.5 MG/3 ML AMPUL NEB ONE ×2 (11:20→13:54)
--- NOTE | 2019-07-25 11:23 | ER Document Report ---
ED Respiratory Problem - General Chief Complaint: Breathing Difficulty Stated Complaint: TROUBLE BREATHING Time Seen by Provider: 07/25/19 10:25 Primary Care Provider: NASIR SOUSA MD [NO LOCAL MD] - Follow up as needed Mode of Arrival: Ambulatory Information source: Patient Notes: Patient is a 69-year-old male with past medical history of diabetes, myocardial infarction, CHF, triple bypass and 4 stents presenting with complaints of difficulty breathing and shortness of breath. Patient reports symptoms have been ongoing for several weeks, states he was diagnosed with a sinus infection and pneumonia yesterday at the urgent care. He states they gave him an an tibiotic injection. He states he also had a fever of 101 yesterday. Patient reports when he woke up this morning he had worsening of his shortness of breath and decided to come to the emergency department. Patient denies any nausea, vomiting, diarrhea. Patient does report multiple hospitalizations for pneumonia in the past. TRAVEL OUTSIDE OF THE [place] IN LAST 30 DAYS: No - Related Data Allergies/Adverse Reactions: No Known Allergies Allergy (Verified 01/30/19 07:24) Home Medications: Insulin Past Medical History - General Information source: Patient - Social History Smoking Status: Former Smoker Chew tobacco use (# tins/day): No Frequency of alcohol use: None Drug Abuse: None Family History: Reviewed & Not Pertinent Patient has suicidal ideation: No Patient has homicidal ideation: No - Past Medical History Cardiac Medical History: Reports: Hx Congestive Heart Failure, Hx Coronary Artery Disease, Hx Heart Attack - multiple, Hx Hypercholesterolemia, Hx Hypertension Pulmonary Medical History: Reports: Hx COPD Denies: Hx Asthma Neurological Medical History: Denies: Hx Cerebrovascular Accident, Hx Seizures Endocrine Medical History: Reports: Hx Diabetes Mellitus Type 2 Renal/ Medical History: Denies: Hx Peritoneal Dialysis GI Medical History: Reports: Hx Hiatal Hernia. Denies: Hx Hepatitis, Hx Ulcer Musculoskeletal Medical History: Reports Hx Arthritis Psychiatric Medical History: Reports: Hx Depression, Hx Post Traumatic Stress Disorder Infectious Medical History: Denies: Hx Hepatitis Past Surgical History: Reports: Hx Appendectomy, Hx Cardiac Catheterization - (+) stents, Hx Cardiac Surgery - trip bypass, Hx Open Heart Surgery - TRIPLE BYPASS STENT FE. Denies: Hx Pacemaker - Immunizations Hx Diphtheria, Pertussis, Tetanus Vaccination: Yes Hx Pneumococcal Vaccination: 08/12/12 Review of Systems - Review of Systems Constitutional: Fever, Malaise EENT: No symptoms reported, Nose congestion, Nose discharge Cardiovascular: No symptoms reported Respiratory: Cough, Short of breath, Sputum Gastrointestinal: No symptoms reported Genitourinary: No symptoms reported Male Genitourinary: No symptoms reported Musculoskeletal: No symptoms reported Skin: No symptoms reported Hematologic/Lymphatic: No symptoms reported Neurological/Psychological: No symptoms reported Physical Exam - Vital signs Vitals: Temp Pulse Resp BP Pulse Ox 97.5 F 70 18 144/81 H 99 07/25/19 10:25 07/25/19 10:25 07/25/19 10:25 07/25/19 10:07/25/19 10:25 - Notes Notes: PHYSICAL EXAMINATION: GENERAL: Well-appearing, well-nourished and in no acute distress. HEAD: Atraumatic, normocephalic. EYES: Pupils equal round and reactive to light, extraocular movements intact, sclera anicteric, conjunctiva are normal. ENT: Nares patent, oropharynx clear without exudates. Moist mucous membranes. NECK: Normal range of motion, supple without lymphadenopathy LUNGS: Bilateral expiratory wheezes noted, and mildly increased work of breathing. HEART: Regular rate and rhythm without murmurs ABDOMEN: Soft, nontender, nondistended abdomen. No guarding, no rebound. No masses appreciated. Musculoskeletal: Normal range of motion, no pitting or edema. No cyanosis. NEUROLOGICAL: Cranial nerves grossly intact. Normal speech, normal gait. Normal sensory, motor exams PSYCH: Normal mood, normal affect. SKIN: Warm, Dry, normal turgor, no rashes or lesions noted. Course - Re-evaluation Re-evalutation: 07/25/19 11:23 Patient wheezing throughout at my initial evaluation. Orders added for osmany athing treatments and Solu-Medrol. I also added on blood cultures, lactic acid and VBG since patient has been having fevers up to 101. Currently patient's vital signs are within normal limits, no hypoxia, tachypnea, normotensive. Patient is speaking in full and complete sentences. On reevaluation patient reports he feels much improved, his wheezes have cleared. His vital signs have remained stable. Chest x-ray was negative for any acute findings. EKG showed a sinus rhythm, rate of 61, QTc 444, normal axis, no ST segment elevations or depressions. Lactic acid was normal. CBC and comprehensive metabolic panel within normal limits. Patient was already prescribed antibiotics by the provider he saw yesterday, they placed him on doxycycline and amoxicillin. He has these at the pharmacy as well as Tessalon Perlmi and a steroid Dosepak. I did give patient a prescription for some alb uterol ampules for his nebulizer machine. Patient feels improved, ready for discharge at this time. Patient given ED return precautions. The patient's emergency department workup and current diagnosis were explained to the patient and or family. Follow-up instructions were provided. Medications if prescribed were discussed. Instructions for when to return to the emergency department including specific worrisome symptoms were discussed with the patient and/or family. - Vital Signs Vital signs: Temp Pulse Resp BP Pulse Ox 98.5 F 70 17 154/76 H 97 07/25/19 15:38 07/25/19 10:25 07/25/19 15:38 07/25/19 15:38 07/25/19 15:38 - Laboratory Result Diagrams: 07/25/19 10:50 07/25/19 10:50 Laboratory results interpreted by me: 07/25/19 07/25/19 10:50 10:56 Glucose 154 H POC Glucose 159 H Discharge - Discharge Clinical Impression: Upper respiratory infection Qualifiers: URI type: unspecified URI Qualified Code(s): J06.9 - Acute upper respiratory infection, unspecified Condition: Stable Disposition: HOME, SELF-CARE Additional Instructions: Your chest x-ray was normal today. 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 I also called in a prescription for some albuterol for you for your nebulizer machine. Please return to the emergency department if you experience any worsening symptoms such as increased shortness of breath or fever. Drink plenty of fluids, take Tylenol or ibuprofen for any pain or body aches. As discussed please follow-up with your primary care physician, call them today to schedule an appointment for either this Tuesday or next Tuesday. Prescriptions: Albuterol Sulfate [Ventolin 0.083% Neb 2.5 mg/3 mL Ampul] 2.5 mg NEB Q4H 1 Days #30 vial.neb Referrals: NASIR SOUSA MD [NO LOCAL MD] - Follow up as needed
[2019-07-25 11:28] LABS: VENOUS BLOOD BASE EXCESS -0.5 mmol/L; VENOUS BLOOD HCO3 25.4 mmol/L (20-32); VENOUS BLOOD PCO2 46.3 mmHg (35-63); VENOUS BLOOD PH 7.36 (7.30-7.42)
--- NOTE | 2019-07-25 11:43 | RADIOLOGY REPORT (SQ) ---
EXAM DESCRIPTION: CHEST 2 VIEWS COMPLETED DATE/TIME: 07/25/2019 11:35 am REASON FOR STUDY: sob, right side chest pain COMPARISON: 06/06/2019 EXAM PARAMETERS: NUMBER OF VIEWS: two views TECHNIQUE: Digital Frontal and Lateral radiographic views of the chest acquired. RADIATION DOSE: NA LIMITATIONS: none FINDINGS: LUNGS AND PLEURA: No opacities, masses or pneumothorax. No pleural effusion. MEDIASTINUM AND HILAR STRUCTURES: No masses or contour abnormalities. HEART AND VASCULAR STRUCTURES: Heart normal size. No evidence for failure. BONES: No acute findings. HARDWARE: Sternotomy wires are in place. OTHER: No other significant finding. IMPRESSION: NO ACUTE RADIOGRAPHIC FINDING IN THE CHEST. TECHNICAL DOCUMENTATION: JOB ID: [id number] [employer]- All Rights Reserved Reading location - IP/workstation name: [email or web address]
[2019-07-25 11:46] LABS: ALBUMIN 4.4 g/dL (3.5-5.0); ALKALINE PHOSPHATASE 102 U/L (38-126); ANION GAP 11 (5-19); ASPARTATE AMINO TRANSFERASE 27 U/L (17-59); BILIRUBIN,DIRECT 0.1 mg/dL (0.0-0.4); BILIRUBIN,TOTAL 0.7 mg/dL (0.2-1.3); BLOOD UREA NITROGEN 16 mg/dL (7-20); CALCIUM 9.7 mg/dL (8.4-10.2); CARBON DIOXIDE 28 mmol/L (22-30); CHLORIDE 102 mmol/L (98-107); GLUCOSE 154 mg/dL (75-110); POTASSIUM 4.5 mmol/L (3.6-5.0); TOTAL PROTEIN 7.5 g/dL (6.3-8.2)
[2019-07-25 11:55] LABS: NT PRO BNP 74 pg/mL (<125); TROPONIN I < 0.012 ng/mL
[2019-07-25 15:39] VITALS: BP 154/76
== END 2019-07-25 15:45 | disposition home or self-care (01) ==
LOC: ER 10:22
DX: J06.9 Acute upper respiratory infection, unspecified (principal); R06.02 Shortness of breath; R50.9 Fever, unspecified; R05 Cough; R53.81 Other malaise; R09.81 Nasal congestion; R09.89 Other specified symptoms and signs involving the circulatory and respiratory systems; E11.9 Type 2 diabetes mellitus without complications; I25.2 Old myocardial infarction; I50.9 Heart failure, unspecified; Z95.1 Presence of aortocoronary bypass graft; Z87.891 Personal history of nicotine dependence
CPT/HCPCS: 93005; 94640 ×2; 99285; 96374; 36415; 87040; 82962; 85025; 80053; 84484; 82803; 83605; 83880; 71046; 93010; J2930; J7620